=== PATIENT | female | born 1955 | race Caucasian/White ===

== ENCOUNTER 2017-06-05 00:52 | Outpatient (CLI) | payer MEDICARE, MEDICAID ==
[~2017-06-05 00:52] MED LIST: AMIT-189 PO; BUDE0.256 PO; CALC0.253 PO; CHOL378P; CITA10TA9 PO; COR3.125T PO; DIAZ5TAB PO; DICY10CA88 PO; FURO80TA87 PO; GABA600T2 PO; GABA800T2 PO; LEVO112T52 PO; LURA60TA2 PO; NITR0.4T51 SL; RANI150T8 PO; TIZA4CAP PO; VALS160T2 PO
== END 2017-06-05 23:59 | disposition home or self-care (01) ==
LOC: DIABETIC 00:52
PROVIDERS: ATTEND Specialist
DX: E11.65 Type 2 diabetes mellitus with hyperglycemia (principal); I10 Essential (primary) hypertension; J45.909 Unspecified asthma, uncomplicated
CPT/HCPCS: G0108

== ENCOUNTER 2017-08-22 18:11 | Inpatient (IN) | payer MEDICARE, MEDICAID ==
[~2017-08-22] VITALS: Ht 162.6 cm; Wt 79.5 kg
[2017-08-22 18:42] LABS: BASOPHILS % (AUTO) 0.7 % (0-1); EOSINOPHILS # (AUTO) 0.3 X10'3 (0-0.9); EOSINOPHILS % (AUTO) 4.8 % (0-6); HEMATOCRIT 34.5 % (35.0-45.0); HEMOGLOBIN 11.9 g/dl (12.0-16.0); LYMPHOCYTES # (AUTO) 1.1 X10'3 (1.1-4.8); LYMPHOCYTES % (AUTO) 20.2 % (21-51); MEAN CORPUSCULAR HEMOGLOBIN 32.2 PG (27.0-31.0); MEAN CORPUSCULAR HGB CONC 34.5 % (33.0-36.5); MEAN CORPUSCULAR VOLUME 93.5 FL (78-98); MEAN PLATELET VOLUME 7.1 FL (7.4-10.4); MONOCYTES # (AUTO) 0.6 X10'3 (0-0.9); NEUTROPHILS # (AUTO) 3.6 X10'3 (1.8-7.7); NEUTROPHILS % (AUTO) 64.3 % (42-75); PLATELET COUNT 183 X10'3 (140-440); RED BLOOD COUNT 3.69 X10'6 (4.20-5.60); RED CELL DISTRIBUTION WIDTH 13.6 % (11.5-14.5); WHITE BLOOD COUNT 5.7 X10'3 (4.5-11.0)
[2017-08-22 18:59] LABS: ALANINE AMINOTRANSFERASE 35 U/L (12-78); ALBUMIN 3.2 G/DL (3.4-5.0); ALBUMIN/GLOBULIN RATIO 1.2 (1.1-1.5); ALKALINE PHOSPHATASE 69 IU/L (46-116); ANION GAP 3 (8-16); ASPARTATE AMINO TRANSFERASE 33 U/L (10-37); BILIRUBIN,TOTAL 0.8 MG/DL (0.1-1.0); BLOOD UREA NITROGEN 16 MG/DL (7-18); BUN/CREATININE RATIO 17.6 (6.6-38.0); CALCIUM 10.6 MG/DL (8.5-10.1); CHLORIDE 85 MMOL/L (99-107); CREATININE 0.91 MG/DL (0.40-0.90); GLUCOSE 96 MG/DL (70-104); SODIUM 128 MMOL/L (135-145); TOTAL CARBON DIOXIDE 39.8 MMOL/L (24-32); TOTAL PROTEIN 5.8 G/DL (6.4-8.2); eGFR 62 ML/MIN
[2017-08-22 19:01] LABS: POTASSIUM 2.1 MMOL/L (3.5-5.1)
[2017-08-22] MEDS ORDERED: potassium Cl 20 mEq SR tablet PO ONE (19:15)
[2017-08-22] MEDS ORDERED: magnesium 2GM in 50ml NS 50 ML IV ONE (19:15)
[2017-08-22 19:26] LABS: MAGNESIUM 1.3 MG/DL (1.5-2.4)
[2017-08-22] MEDS: potassium 10mEq/100ml NS w/LIDOcaine (10mg/bag) IV SCH ×2 (19:57→22:42)
[2017-08-22] MEDS ORDERED: CYAN10007 IM (20:47)
[2017-08-22] MEDS ORDERED: FURO-149 PO (20:47)
[2017-08-22] MEDS ORDERED: AMLO5TAB4 PO (20:47)
[2017-08-22] MEDS ORDERED: POTA20TA19 PO (20:47)
[2017-08-22] MEDS ORDERED: LEVO50TA PO (20:47)
[2017-08-22] MEDS ORDERED: ATOR10TA PO (20:47)
[2017-08-22] MEDS ORDERED: OXYC-150 PO (20:47)
[2017-08-22] MEDS ORDERED: LINA290C PO (20:51)
[2017-08-22] MEDS ORDERED: ALBU8.5H8 IH (20:51)
[2017-08-22] MEDS ORDERED: CARV-50 PO (20:51)
[2017-08-22] MEDS ORDERED: PALI6TAB PO (20:51)
[2017-08-22] MEDS ORDERED: mag hydrox/Alum hydrox/simeth 30ml oral suspension PO PRN (21:05)
[2017-08-22] MEDS ORDERED: magnesium 2GM in 50ml NS 50 ML IV PRN (21:05)
[2017-08-22] MEDS ORDERED: magnesium 4gm in 100ml NS 100 ML IV PRN (21:05)
[2017-08-22] MEDS ORDERED: magnesium Cl slow-release 64mg tablet PO PRN (21:05)
[2017-08-22] MEDS ORDERED: insulin Lispro (HumaLOG) vial - multi-dose SQ SCH (21:05)
[2017-08-22] MEDS ORDERED: ondansetron/PF 4mg/2ml inj IV PRN (21:05)
[2017-08-22] MEDS ORDERED: acetaminophen 325mg tablet PO PRN (21:05)
[2017-08-22] MEDS ORDERED: potassium Cl 20 mEq SR tablet PO PRN (21:05)
[2017-08-22] MEDS ORDERED: magnesium hydroxide 30ml (MOM) UD suspension PO PRN (21:05)
[2017-08-22] MEDS ORDERED: glucagon, human recombinant 1mg kit SUBCUT PRN (21:05)
[2017-08-22] MEDS ORDERED: dextrose ORAL solution 15 GM/59 ML bottle PO PRN ×2 (21:05)
[2017-08-22] MEDS ORDERED: potassium Cl 40MEQ/NS 500ml 500 ML IV PRN ×2 (21:05)
[2017-08-22] MEDS ORDERED: MESSAGE TO PHARMACY PO ONE (21:05)
[2017-08-22] MEDS ORDERED: dextrose 50%-water 50ml dispensing syringe IV PRN ×2 (21:05)
[2017-08-22] MEDS ORDERED: LOTE5DRO3 (21:11)
[2017-08-22 21:25] LABS: HEMOGLOBIN A1C 6.7 % (4.5-6.2)
[2017-08-22] MEDS: normal saline 1000ml 1,000 ML IV SCH (21:26)
[2017-08-22 22:45] VITALS: BP 122/68
[2017-08-22 23:34] LABS: MAGNESIUM 1.8 MG/DL (1.5-2.4)
[2017-08-22 23:36] LABS: POTASSIUM 2.3 MMOL/L (3.5-5.1)
[2017-08-22] MEDS ORDERED: potassium Cl 40MEQ/NS 500ml 1,000 ML IV ONE (23:54)
[2017-08-22] MEDS ORDERED: nitroGLYCERIN 0.4mg SUBLingual tab SL PRN (23:55)
[2017-08-22] MEDS ORDERED: diazepam 5mg tablet PO PRN (23:55)
[2017-08-22] MEDS ORDERED: non-formulary drug (Albuterol Sulfate (Proair Hfa) 2 PUFFS) IH PRN (23:55)
[2017-08-23] MEDS ORDERED: albuterol 2.5 MG/3 ML nebule NEB PRN (00:05)
[2017-08-23] MEDS: oxyCODONE/APAP 10/325mg tablet PO PRN ×2 (00:49→10:56)
[2017-08-23 06:09] LABS: BASOPHILS % (AUTO) 0.6 % (0-1); EOSINOPHILS # (AUTO) 0.2 X10'3 (0-0.9); EOSINOPHILS % (AUTO) 4.3 % (0-6); HEMATOCRIT 31.8 % (35.0-45.0); HEMOGLOBIN 10.9 g/dl (12.0-16.0); LYMPHOCYTES # (AUTO) 1.1 X10'3 (1.1-4.8); LYMPHOCYTES % (AUTO) 21.7 % (21-51); MEAN CORPUSCULAR HGB CONC 34.4 % (33.0-36.5); MEAN CORPUSCULAR VOLUME 92.9 FL (78-98); MEAN PLATELET VOLUME 7.7 FL (7.4-10.4); MONOCYTES # (AUTO) 0.5 X10'3 (0-0.9); MONOCYTES % (AUTO) 9.6 % (2-12); NEUTROPHILS # (AUTO) 3.3 X10'3 (1.8-7.7); NEUTROPHILS % (AUTO) 63.8 % (42-75); PLATELET COUNT 159 X10'3 (140-440); RED BLOOD COUNT 3.42 X10'6 (4.20-5.60); RED CELL DISTRIBUTION WIDTH 13.3 % (11.5-14.5); WHITE BLOOD COUNT 5.2 X10'3 (4.5-11.0)
[2017-08-23 06:36] LABS: ALBUMIN 2.8 G/DL (3.4-5.0); ANION GAP 4 (8-16); BLOOD UREA NITROGEN 14 MG/DL (7-18); BUN/CREATININE RATIO 19.7 (6.6-38.0); CALCIUM 9.4 MG/DL (8.5-10.1); CHLORIDE 94 MMOL/L (99-107); CREATININE 0.71 MG/DL (0.40-0.90); GLUCOSE 121 MG/DL (70-104); MAGNESIUM 1.6 MG/DL (1.5-2.4); POTASSIUM 3.3 MMOL/L (3.5-5.1); SODIUM 132 MMOL/L (135-145); TOTAL CARBON DIOXIDE 33.6 MMOL/L (24-32); eGFR 83 ML/MIN
[2017-08-23] MEDS: CITALOpram 10mg tablet PO SCH (07:24)
[2017-08-23] MEDS: levoTHYROXINE 25mcg tablet PO SCH (07:24)
[2017-08-23] MEDS: atorvastatin 10mg tablet PO SCH (07:24)
[2017-08-23] MEDS: carVEDilol 12.5mg tablet PO SCH ×2 (07:24→21:16)
[2017-08-23] MEDS: gabapentin 300mg capsule PO SCH ×2 (07:25→17:01)
[2017-08-23] MEDS: amLODIPine 5mg tablet PO SCH (07:25)
[2017-08-23] MEDS: famotidine 20mg tablet PO SCH ×2 (07:25→21:16)
[2017-08-23] MEDS: K and/or MAG REPLACEMENT MC SCH (07:33)
[2017-08-23 07:40] VITALS: BP 142/75
[2017-08-23] MEDS: Linaclotide (Linzess) 290 MG PO SCH (08:00)
[2017-08-23] MEDS ORDERED: non-formulary drug (Ranitidine HCl 1 TAB) PO SCH (08:00)
[2017-08-23 12:00] VITALS: BP 145/61
[2017-08-23] MEDS: calcitriol 0.25mcg capsule PO SCH ×2 (12:22→21:16)
[2017-08-23] MEDS: risperiDONE 2mg tablet PO SCH (12:23)
[2017-08-23 13:46] VITALS: BP 142/79
[2017-08-23] MEDS: potassium Cl 20 mEq SR tablet PO PRN ×2 (17:02→22:19)
[2017-08-23 18:00] VITALS: BP 116/61
[2017-08-23] MEDS ORDERED: gabapentin 300mg capsule PO SCH (21:00)
[2017-08-23] MEDS ORDERED: non-formulary drug (Paliperidone (Invega) 1 TAB) PO SCH (21:00)
[2017-08-23] MEDS: insulin glargine (Lantus) pen - multi-dose SQ SCH (21:00)
[2017-08-23] MEDS ORDERED: amitryptiline 50mg tablet PO SCH (21:00)
[2017-08-23] MEDS: normal saline 1000ml 1,000 ML IV SCH (21:28)
[2017-08-24] VITALS: BP 138/70
[2017-08-24] MEDS: potassium Cl 20 mEq SR tablet PO PRN (02:51)
[2017-08-24 05:19] LABS: BASOPHILS % (AUTO) 0.5 % (0-1); EOSINOPHILS # (AUTO) 0.3 X10'3 (0-0.9); EOSINOPHILS % (AUTO) 5.6 % (0-6); HEMATOCRIT 34.3 % (35.0-45.0); HEMOGLOBIN 11.6 g/dl (12.0-16.0); LYMPHOCYTES # (AUTO) 0.9 X10'3 (1.1-4.8); LYMPHOCYTES % (AUTO) 16.7 % (21-51); MEAN CORPUSCULAR HEMOGLOBIN 32.1 PG (27.0-31.0); MEAN CORPUSCULAR HGB CONC 33.8 % (33.0-36.5); MEAN PLATELET VOLUME 7.3 FL (7.4-10.4); MONOCYTES # (AUTO) 0.5 X10'3 (0-0.9); MONOCYTES % (AUTO) 8.8 % (2-12); NEUTROPHILS # (AUTO) 3.8 X10'3 (1.8-7.7); NEUTROPHILS % (AUTO) 68.4 % (42-75); PLATELET COUNT 182 X10'3 (140-440); RED BLOOD COUNT 3.61 X10'6 (4.20-5.60); RED CELL DISTRIBUTION WIDTH 13.7 % (11.5-14.5); WHITE BLOOD COUNT 5.5 X10'3 (4.5-11.0)
[2017-08-24 05:47] LABS: ALBUMIN 3.1 G/DL (3.4-5.0); ANION GAP 6 (8-16); BLOOD UREA NITROGEN 13 MG/DL (7-18); BUN/CREATININE RATIO 18.3 (6.6-38.0); CALCIUM 9.6 MG/DL (8.5-10.1); CHLORIDE 103 MMOL/L (99-107); CREATININE 0.71 MG/DL (0.40-0.90); GLUCOSE 153 MG/DL (70-104); MAGNESIUM 1.7 MG/DL (1.5-2.4); POTASSIUM 3.6 MMOL/L (3.5-5.1); SODIUM 140 MMOL/L (135-145); TOTAL CARBON DIOXIDE 31.4 MMOL/L (24-32); eGFR 83 ML/MIN
[2017-08-24] MEDS: K and/or MAG REPLACEMENT MC SCH (06:53)
[2017-08-24] MEDS: normal saline 1000ml 1,000 ML IV SCH ×2 (06:58→20:42)
[2017-08-24] MEDS: CITALOpram 10mg tablet PO SCH (07:00)
[2017-08-24] MEDS: levoTHYROXINE 25mcg tablet PO SCH (07:00)
[2017-08-24] MEDS: carVEDilol 12.5mg tablet PO SCH ×2 (07:00→21:22)
[2017-08-24] MEDS: calcitriol 0.25mcg capsule PO SCH ×2 (07:00→21:26)
[2017-08-24] MEDS: risperiDONE 2mg tablet PO SCH (07:01)
[2017-08-24] MEDS: atorvastatin 10mg tablet PO SCH (07:01)
[2017-08-24] MEDS: gabapentin 300mg capsule PO SCH ×2 (07:01→21:22)
[2017-08-24] MEDS: amLODIPine 5mg tablet PO SCH (07:01)
[2017-08-24] MEDS: famotidine 20mg tablet PO SCH ×2 (07:01→21:22)
[2017-08-24 07:08] VITALS: BP 133/83
[2017-08-24] MEDS: Linaclotide (Linzess) 290 MG PO SCH (07:08)
[2017-08-24 12:20] VITALS: BP 116/57
[2017-08-24] MEDS: oxyCODONE/APAP 5-325mg tablet PO PRN (16:36)
[2017-08-24 18:00] VITALS: BP 149/96
[2017-08-24 18:03] LABS: CLARITY,URINE CLEAR (Clear); COLOR,URINE YELLOW (Yellow); GLUCOSE, URINE NEGATIVE (Neg); KETONES,URINE NEGATIVE (Neg); LEUKOCYTE ESTERASE ,URINE NEGATIVE (Neg); NITRITES, URINE NEGATIVE (Neg); OCCULT BLOOD,URINE NEGATIVE (Neg); PROTEIN,URINE NEGATIVE (Neg)
[2017-08-24 18:06] LABS: UA COLLECTION TYPE VOIDED
[2017-08-24 18:58] LABS: URINE AMPHETAMINE SCREEN NEGATIVE (Neg); URINE BARBITUATE SCREEN NEGATIVE (Neg); URINE BENZODIAZEPINES SCREEN POSITIVE (Neg); URINE CANNABINOID SCREEN NEGATIVE (Neg); URINE COCAINE SCREEN NEGATIVE (Neg); URINE METHADONE SCREEN NEGATIVE (Neg); URINE OPIATE SCREEN NEGATIVE (Neg); URINE PHENCYCLIDINE SCREEN NEGATIVE (Neg)
[2017-08-24] MEDS: insulin glargine (Lantus) pen - multi-dose SQ SCH (21:00)
[2017-08-24 21:13] VITALS: BP 140/80
[2017-08-25] VITALS: BP 154/74
[2017-08-25] MEDS: oxyCODONE/APAP 5-325mg tablet PO PRN ×2 (00:16→11:09)
[2017-08-25] MEDS: normal saline 1000ml 1,000 ML IV SCH ×2 (00:19→13:16)
[2017-08-25 05:56] LABS: BASOPHILS % (AUTO) 0.4 % (0-1); EOSINOPHILS # (AUTO) 0.4 X10'3 (0-0.9); EOSINOPHILS % (AUTO) 5.9 % (0-6); HEMATOCRIT 37.4 % (35.0-45.0); HEMOGLOBIN 12.6 g/dl (12.0-16.0); LYMPHOCYTES # (AUTO) 1.2 X10'3 (1.1-4.8); LYMPHOCYTES % (AUTO) 16.6 % (21-51); MEAN CORPUSCULAR HEMOGLOBIN 32.1 PG (27.0-31.0); MEAN CORPUSCULAR HGB CONC 33.6 % (33.0-36.5); MEAN CORPUSCULAR VOLUME 95.5 FL (78-98); MEAN PLATELET VOLUME 7.7 FL (7.4-10.4); MONOCYTES # (AUTO) 0.5 X10'3 (0-0.9); MONOCYTES % (AUTO) 7.3 % (2-12); NEUTROPHILS % (AUTO) 69.8 % (42-75); PLATELET COUNT 213 X10'3 (140-440); RED BLOOD COUNT 3.92 X10'6 (4.20-5.60); RED CELL DISTRIBUTION WIDTH 13.8 % (11.5-14.5); WHITE BLOOD COUNT 7.2 X10'3 (4.5-11.0)
[2017-08-25 06:38] LABS: ALBUMIN 3.5 G/DL (3.4-5.0); ANION GAP 6 (8-16); BLOOD UREA NITROGEN 10 MG/DL (7-18); BUN/CREATININE RATIO 13.9 (6.6-38.0); CALCIUM 9.7 MG/DL (8.5-10.1); CHLORIDE 102 MMOL/L (99-107); CREATININE 0.72 MG/DL (0.40-0.90); GLUCOSE 140 MG/DL (70-104); MAGNESIUM 1.6 MG/DL (1.5-2.4); POTASSIUM 3.5 MMOL/L (3.5-5.1); SODIUM 136 MMOL/L (135-145); eGFR 82 ML/MIN
[2017-08-25 07:00] VITALS: BP 166/82
[2017-08-25] MEDS: levoTHYROXINE 25mcg tablet PO SCH (07:16)
[2017-08-25] MEDS: carVEDilol 12.5mg tablet PO SCH (07:16)
[2017-08-25] MEDS: risperiDONE 2mg tablet PO SCH (07:17)
[2017-08-25] MEDS: CITALOpram 10mg tablet PO SCH (07:17)
[2017-08-25] MEDS: calcitriol 0.25mcg capsule PO SCH (07:17)
[2017-08-25] MEDS: gabapentin 300mg capsule PO SCH ×2 (07:17→12:57)
[2017-08-25] MEDS: amLODIPine 5mg tablet PO SCH (07:17)
[2017-08-25] MEDS: atorvastatin 10mg tablet PO SCH (07:17)
[2017-08-25] MEDS: famotidine 20mg tablet PO SCH (07:17)
[2017-08-25] MEDS: Linaclotide (Linzess) 290 MG PO SCH (07:18)
[2017-08-25] MEDS: K and/or MAG REPLACEMENT MC SCH (07:22)
[2017-08-25 11:00] VITALS: BP 167/90
[2017-08-25] MEDS ORDERED: GABA300C PO (14:26)
[2017-08-25] MEDS ORDERED: FURO-150 PO (14:32)
[2017-08-28 16:52] LABS: OCCULT BLOOD STOOL NEGATIVE (Neg)
== END 2017-08-25 15:50 | disposition home health service (06) | DRG 640 ==
LOC: ER 18:12 → ED HOLD 21:02 → EDBEDREQ 22:22 → SUR 3N 22:45
PROVIDERS: ADMIT Family Medicine; ATTEND Family Medicine
PROC: 02HV33Z Insertion of Infusion Device into Superior Vena Cava, Percutaneous Approach (ICD-10-PCS; principal; 2017-08-22)
DX: E87.6 Hypokalemia (principal); G93.40 Encephalopathy, unspecified; E86.0 Dehydration; E87.2 Acidosis; I50.22 Chronic systolic (congestive) heart failure; E83.52 Hypercalcemia; K50.90 Crohn's disease, unspecified, without complications; E83.42 Hypomagnesemia; E87.1 Hypo-osmolality and hyponatremia; D64.9 Anemia, unspecified; E11.9 Type 2 diabetes mellitus without complications; E03.9 Hypothyroidism, unspecified; E73.9 Lactose intolerance, unspecified; G89.29 Other chronic pain; M54.9 Dorsalgia, unspecified; E87.8 Other disorders of electrolyte and fluid balance, not elsewhere classified; F32.9 Major depressive disorder, single episode, unspecified; F41.9 Anxiety disorder, unspecified; I25.10 Atherosclerotic heart disease of native coronary artery without angina pectoris; I73.00 Raynaud's syndrome without gangrene; M23.91 Unspecified internal derangement of right knee; Z80.0 Family history of malignant neoplasm of digestive organs; Z80.8 Family history of malignant neoplasm of other organs or systems; Z82.49 Family history of ischemic heart disease and other diseases of the circulatory system; Z95.5 Presence of coronary angioplasty implant and graft; I25.2 Old myocardial infarction; Z98.84 Bariatric surgery status; Z88.5 Allergy status to narcotic agent; Z88.8 Allergy status to other drugs, medicaments and biological substances; Z91.041 Radiographic dye allergy status; Z79.899 Other long term (current) drug therapy; Z95.0 Presence of cardiac pacemaker
CPT/HCPCS: 36415; 70450; 80048; 80053; 80305; 81003; 82272; 82948; 83036; 83735; 84132; 84443; 85025; 87070; 93005; 94760; 97116; 97162; 97530; J1815; J3475; J3480; J7030

== ENCOUNTER 2017-09-03 04:42 | Outpatient (CLI) | payer MEDICARE, MEDICAID ==
[~2017-09-03 04:42] MED LIST changes: +ALBU8.5H8 IH; -AMIT-189 PO; +AMLO5TAB4 PO; +ATOR10TA PO; -BUDE0.256 PO; +CARV-50 PO; -CHOL378P; -COR3.125T PO; +CYAN10007 IM; -DIAZ5TAB PO; +FURO-150 PO; -FURO80TA87 PO; +GABA300C PO; -GABA600T2 PO; -GABA800T2 PO; -LEVO112T52 PO; +LEVO50TA PO; +LINA290C PO; +LOTE5DRO3; -LURA60TA2 PO; +PALI6TAB PO; +POTA20TA19 PO; -TIZA4CAP PO; -VALS160T2 PO
== END 2017-09-03 23:59 | disposition home or self-care (01) ==
LOC: DIABETIC 04:42
PROVIDERS: ATTEND Specialist
DX: E11.65 Type 2 diabetes mellitus with hyperglycemia (principal); I11.0 Hypertensive heart disease with heart failure; I50.9 Heart failure, unspecified; J45.909 Unspecified asthma, uncomplicated
CPT/HCPCS: G0108

== ENCOUNTER 2018-01-09 01:48 | Outpatient (CLI) | payer MEDICARE | END 2018-01-09 23:59 | disposition home or self-care (01) | LOC: DIABETIC 01:48 | PROVIDERS: ATTEND Specialist | DX: E11.65 Type 2 diabetes mellitus with hyperglycemia (principal); I11.0 Hypertensive heart disease with heart failure; I50.9 Heart failure, unspecified; J45.909 Unspecified asthma, uncomplicated | CPT/HCPCS: G0108 ==

== ENCOUNTER 2018-07-23 01:34 | Outpatient (CLI) | payer MEDICARE, MEDICAID | END 2018-07-23 23:59 | disposition home or self-care (01) | LOC: DIABETIC 01:34 | PROVIDERS: ATTEND Specialist | DX: E11.65 Type 2 diabetes mellitus with hyperglycemia (principal); I11.0 Hypertensive heart disease with heart failure; I50.9 Heart failure, unspecified; J45.909 Unspecified asthma, uncomplicated | CPT/HCPCS: G0108 ==

== ENCOUNTER 2018-09-03 14:50 | Outpatient (CLI) | payer MEDICARE, MEDICAID ==
[2018-09-03 15:48] LABS: BASOPHILS # (AUTO) 0.1 X10'3 (0-0.2); BASOPHILS % (AUTO) 1.5 % (0-1); EOSINOPHILS # (AUTO) 0.3 X10'3 (0-0.9); HEMATOCRIT 36.5 % (35.0-45.0); HEMOGLOBIN 12.1 g/dl (12.0-16.0); LYMPHOCYTES # (AUTO) 1.5 X10'3 (1.1-4.8); LYMPHOCYTES % (AUTO) 22.5 % (21-51); MEAN CORPUSCULAR HEMOGLOBIN 31.1 PG (27.0-31.0); MEAN CORPUSCULAR HGB CONC 33.1 g/dL (33.0-36.5); MEAN CORPUSCULAR VOLUME 94.1 FL (78-98); MEAN PLATELET VOLUME 8.2 FL (7.4-10.4); MONOCYTES # (AUTO) 0.6 X10'3 (0-0.9); NEUTROPHILS # (AUTO) 4.1 X10'3 (1.8-7.7); PLATELET COUNT 265 X10'3 (140-440); RED BLOOD COUNT 3.87 X10'6 (4.20-5.60); RED CELL DISTRIBUTION WIDTH 14.9 % (11.5-14.5); WHITE BLOOD COUNT 6.5 X10'3 (4.5-11.0)
[2018-09-03 15:57] LABS: INR 1.1 INR; PARTIAL THROMBOPLASTIN TIME 27 SECONDS (22-32)
[2018-09-03 15:58] LABS: ALANINE AMINOTRANSFERASE 30 U/L (12-78); ALBUMIN 3.8 G/DL (3.4-5.0); ALBUMIN/GLOBULIN RATIO 1.5 (1.1-1.5); ALKALINE PHOSPHATASE 69 IU/L (46-116); ANION GAP 3 (8-16); ASPARTATE AMINO TRANSFERASE 21 U/L (10-37); BILIRUBIN,TOTAL 0.4 MG/DL (0.1-1.0); BLOOD UREA NITROGEN 17 MG/DL (7-18); BUN/CREATININE RATIO 19.8 (6.6-38.0); CALCIUM 10.2 MG/DL (8.5-10.1); CHLORIDE 98 MMOL/L (99-107); CREATININE 0.86 MG/DL (0.40-0.90); GLUCOSE 136 MG/DL (70-104); POTASSIUM 3.6 MMOL/L (3.5-5.1); SODIUM 133 MMOL/L (135-145); TOTAL CARBON DIOXIDE 31.8 MMOL/L (24-32); TOTAL PROTEIN 6.4 G/DL (6.4-8.2); eGFR 66 ML/MIN
== END 2018-09-03 23:59 | disposition home or self-care (01) ==
LOC: LAB 14:50
PROVIDERS: ATTEND Otolaryngology
DX: D69.1 Qualitative platelet defects (principal)
CPT/HCPCS: 36415; 80053; 85025; 85576; 85610; 85730

== ENCOUNTER 2019-01-20 00:41 | Outpatient (CLI) | payer MEDICARE, MEDICAID | END 2019-01-20 23:59 | disposition home or self-care (01) | LOC: DIABETIC 00:41 | PROVIDERS: ATTEND Specialist | DX: E11.65 Type 2 diabetes mellitus with hyperglycemia (principal); I11.0 Hypertensive heart disease with heart failure; I50.9 Heart failure, unspecified; Z95.0 Presence of cardiac pacemaker; M19.90 Unspecified osteoarthritis, unspecified site; M81.0 Age-related osteoporosis without current pathological fracture; Z79.84 Long term (current) use of oral hypoglycemic drugs; Z79.899 Other long term (current) drug therapy | CPT/HCPCS: G0108 ==

== ENCOUNTER 2020-11-29 07:58 | Day surgery (SDC) | payer MEDICARE, MEDICAID ==
[2020-11-22 15:15] LABS: BASOPHILS # (AUTO) 0.1 X10'3 (0-0.2); BASOPHILS % (AUTO) 0.8 % (0-1); EOSINOPHILS # (AUTO) 0.1 X10'3 (0-0.9); EOSINOPHILS % (AUTO) 1.8 % (0-6); LYMPHOCYTES # (AUTO) 0.9 X10'3 (1.1-4.8); LYMPHOCYTES % (AUTO) 12.7 % (21-51); MEAN CORPUSCULAR HEMOGLOBIN 31.1 PG (27.0-31.0); MEAN CORPUSCULAR HGB CONC 33.2 g/dL (33.0-36.5); MEAN CORPUSCULAR VOLUME 93.4 FL (78-98); MEAN PLATELET VOLUME 7.8 FL (7.4-10.4); MONOCYTES # (AUTO) 0.7 X10'3 (0-0.9); MONOCYTES % (AUTO) 9.1 % (2-12); NEUTROPHILS # (AUTO) 5.6 X10'3 (1.8-7.7); NEUTROPHILS % (AUTO) 75.6 % (42-75); PRE OP PLATELET COUNT 263 X10'3 (140-440); RED BLOOD COUNT 3.32 X10'6 (4.20-5.60); RED CELL DISTRIBUTION WIDTH 16.8 % (11.5-14.5)
[2020-11-22 15:18] LABS: PRE OP HEMOGLOBIN 10.3 g/dL (12.0-16.0)
[2020-11-22 15:29] LABS: ALBUMIN 3.2 G/DL (3.4-5.0); ALBUMIN/GLOBULIN RATIO 1.2 (1.1-1.5); ALKALINE PHOSPHATASE 80 IU/L (46-116); BLOOD UREA NITROGEN 19 MG/DL (7-18); BUN/CREATININE RATIO 22.6 (6.6-38.0); CALCIUM 8.7 MG/DL (8.5-10.1); CHLORIDE 101 MMOL/L (99-107); CREATININE 0.84 MG/DL (0.40-0.90); PRE OP ALT 26 U/L (30-65); PRE OP ANION GAP 10 (8-16); PRE OP AST 20 U/L (10-37); PRE OP BILIRUB, TOTAL 0.2 MG/DL (0.0-1.0); PRE OP GLUCOSE 145 MG/DL (70-104); PRE OP POTASSIUM 3.8 MMOL/L (3.4-5.1); PRE OP SODIUM 135 MMOL/L (135-145); TOTAL CARBON DIOXIDE 23.8 MMOL/L (24-32); TOTAL PROTEIN 5.9 G/DL (6.4-8.2); eGFR 68 ML/MIN
[~2020-11-29] VITALS: Ht 162.6 cm; Wt 71.0 kg
[~2020-11-29 07:58] MED LIST changes: +ACET-2006 PO; -ALBU8.5H8 IH; +AMIT25TA9 PO; -AMLO5TAB4 PO; +ASCO-10 PO; +ASPI-611 PO; -ATOR10TA PO; +ATOR40TA72 PO; +BIOT5000 PO; +BUPIVAcaine/PF 2.5mg/ml (0.25%) 10ml vial ONE; -CALC0.253 PO; +CHOL500044; -CITA10TA9 PO; +CITA40TA17 PO; +CLIN-142 PO; +CYCL1DRO2; +DOCUMENT DATE & TIME OF BETA-BLOCKER PO ONE; +FAMO20TA8 PO; +FLUT15.815 NS; -FURO-150 PO; +GLUC-95 PO; +IBUP-1984 PO; -LINA290C PO; +LINA5TAB4 PO; -LOTE5DRO3; +METF-900 PO; +MUPI15CR12 TOP; -NITR0.4T51 SL; +OMEP-50 PO; -PALI6TAB PO; -RANI150T8 PO; +SACU1TAB PO; +VITA-268 PO; +ZINC50TA67 PO; +[UNRECOGNIZED DRUG - CODE] PO; +albuterol 2.5 MG/3 ML nebule NEB ONE; +cefazolin/dext.iso 2gm/100ml IV ONE; +famotidine 20mg tablet PO ONE; +ringers solution, lacted 1,000 ML IV SCH; +scopolamine 1mg/72 hr patch TD SCH
[2020-11-29 08:10] VITALS: BP 138/80
[2020-11-29] MEDS ORDERED: proCHLORperazine 10 MG/2 ml inj IV PRN (09:15)
[2020-11-29] MEDS ORDERED: ondansetron/PF 4mg/2ml inj IV PRN (09:15)
[2020-11-29] MEDS ORDERED: ringers solution, lacted 1,000 ML IV SCH (09:15)
[2020-11-29] MEDS ORDERED: morphine 2 MG/ML inj. syringe IV PRN (09:15)
[2020-11-29] MEDS ORDERED: morphine 4 MG/ML inj SYRINge IV PRN (09:15)
[2020-11-29] MEDS ORDERED: meperidine/PF 25mg/ml syringe IV PRN ×3 (09:15)
[2020-11-29] MEDS ORDERED: LIDOcaine 0.5% (5mg/ml) 50ml vial ONE (09:34)
[2020-11-29] MEDS ORDERED: midazolam 1 mg/ML 2ml injection ONE (10:19)
[2020-11-29] MEDS ORDERED: fentaNYL/PF 50MCG/1 ML 2ML syringe ONE (10:19)
[2020-11-29] MEDS ORDERED: propofol inj 20 ML IV ONE (10:36)
[2020-11-29 10:59] VITALS: BP 141/79
--- NOTE | 2020-11-29 10:59 | NUR ---
Received from OR via [facility] IN STABLE CONDITION , accompanied by Anesthesiologist and SPIRITUAL COUNSELOR report given by SPIRITUAL COUNSELOR AND Anesthesiolgist. Addendum: 11/29/20 at 1126 by Richelle Johnson RN Amended: Links added.
[2020-11-29 11:10] VITALS: BP 151/71
[2020-11-29 11:20] VITALS: BP 149/72
[2020-11-29 11:30] VITALS: BP 160/83
--- NOTE | 2020-11-29 11:39 | NUR ---
PATIENT DISCHARGED FROM PACU AFTER VERBAL AND WRITTEN DISCHARGE INSTRUCTIONS GIVEN. PATIENT GAVE VERBAL UNDERSTANDING OF INSTRUCTIONS GIVEN. PATIENT LEFT FACILITY VIA WHEELCHAIR WITH RN. Addendum: 11/29/20 at 1159 by Richelle Johnson RN Amended: Links added.
== END 2020-11-29 11:39 | disposition home or self-care (01) ==
LOC: PAS 07:58
PROVIDERS: ATTEND Orthopaedic Surgery Hand Surgery
DX: G56.02 Carpal tunnel syndrome, left upper limb (principal); M19.042 Primary osteoarthritis, left hand; I25.10 Atherosclerotic heart disease of native coronary artery without angina pectoris; F32.9 Major depressive disorder, single episode, unspecified; F41.9 Anxiety disorder, unspecified; E11.9 Type 2 diabetes mellitus without complications; E03.9 Hypothyroidism, unspecified; G47.30 Sleep apnea, unspecified; M19.011 Primary osteoarthritis, right shoulder; M17.0 Bilateral primary osteoarthritis of knee; Z86.73 Personal history of transient ischemic attack (TIA), and cerebral infarction without residual deficits; Z20.822 Contact with and (suspected) exposure to COVID-19; Z79.899 Other long term (current) drug therapy; Z88.5 Allergy status to narcotic agent; Z91.041 Radiographic dye allergy status; Z88.8 Allergy status to other drugs, medicaments and biological substances; Z95.5 Presence of coronary angioplasty implant and graft; Z90.49 Acquired absence of other specified parts of digestive tract; Z98.84 Bariatric surgery status; Z98.890 Other specified postprocedural states
CPT/HCPCS: 26531; 36415; 64721; 71046; 80053; 82948; 85025; 93005; J2001; J2250; J2704; J3010; J3490; J7120; L8630; U0003; U0005; Z7506; Z7512; A4215; A4618; A7000

== ENCOUNTER → 2021-02-08 | Outpatient (CLI) | payer MEDICARE, MEDICAID ==
[~2021-02-08] MED LIST changes: -BUPIVAcaine/PF 2.5mg/ml (0.25%) 10ml vial ONE; -DOCUMENT DATE & TIME OF BETA-BLOCKER PO ONE; -albuterol 2.5 MG/3 ML nebule NEB ONE; -cefazolin/dext.iso 2gm/100ml IV ONE; -famotidine 20mg tablet PO ONE; -ringers solution, lacted 1,000 ML IV SCH; -scopolamine 1mg/72 hr patch TD SCH
== END | disposition home or self-care (01) ==
LOC: VAS 11:51
PROVIDERS: ATTEND Orthopaedic Surgery
DX: S80.01XA Contusion of right knee, initial encounter (principal); M25.561 Pain in right knee; X58.XXXA Exposure to other specified factors, initial encounter; Y93.89 Activity, other specified; Y92.89 Other specified places as the place of occurrence of the external cause; Y99.8 Other external cause status
CPT/HCPCS: 93971

== ENCOUNTER 2021-02-21 07:49 | Day surgery (SDC) | payer MEDICARE, MEDICAID ==
[2021-02-17 14:36] LABS: BASOPHILS # (AUTO) 0.1 X10'3 (0-0.2); BASOPHILS % (AUTO) 1.2 % (0-1); EOSINOPHILS # (AUTO) 0.3 X10'3 (0-0.9); EOSINOPHILS % (AUTO) 3.1 % (0-6); LYMPHOCYTES # (AUTO) 0.7 X10'3 (1.1-4.8); LYMPHOCYTES % (AUTO) 7.9 % (21-51); MEAN CORPUSCULAR HEMOGLOBIN 29.5 PG (27.0-31.0); MEAN CORPUSCULAR HGB CONC 32.4 g/dL (33.0-36.5); MEAN CORPUSCULAR VOLUME 91.1 FL (78-98); MEAN PLATELET VOLUME 7.4 FL (7.4-10.4); MONOCYTES # (AUTO) 0.5 X10'3 (0-0.9); MONOCYTES % (AUTO) 6.3 % (2-12); NEUTROPHILS # (AUTO) 6.9 X10'3 (1.8-7.7); NEUTROPHILS % (AUTO) 81.5 % (42-75); PRE OP HEMATOCRIT 28.8 % (35.0-45.0); PRE OP PLATELET COUNT 436 X10'3 (140-440); RED BLOOD COUNT 3.16 X10'6 (4.20-5.60); RED CELL DISTRIBUTION WIDTH 15.3 % (11.5-14.5)
[2021-02-17 14:52] LABS: ALBUMIN 3.2 G/DL (3.4-5.0); ALBUMIN/GLOBULIN RATIO 1.1 (1.1-1.5); ALKALINE PHOSPHATASE 83 IU/L (46-116); BLOOD UREA NITROGEN 16 MG/DL (7-18); BUN/CREATININE RATIO 17.6 (6.6-38.0); CHLORIDE 106 MMOL/L (99-107); CREATININE 0.91 MG/DL (0.40-0.90); PRE OP ALT 39 U/L (30-65); PRE OP ANION GAP 9 (8-16); PRE OP AST 35 U/L (10-37); PRE OP BILIRUB, TOTAL 0.4 MG/DL (0.0-1.0); PRE OP HEMOGLOBIN 9.3 g/dL (12.0-16.0); PRE OP POTASSIUM 4.7 MMOL/L (3.4-5.1); PRE OP SODIUM 139 MMOL/L (135-145); TOTAL CARBON DIOXIDE 24.5 MMOL/L (24-32); eGFR 62 ML/MIN
[2021-02-17 14:54] LABS: PRE OP GLUCOSE 224 MG/DL (70-104)
[~2021-02-21] VITALS: Ht 162.6 cm; Wt 75.6 kg
[~2021-02-21 07:49] MED LIST changes: +ALBUTEROL; +BUDE3CAP8 PO; -CHOL500044; +CHOL500044 PO; -CITA40TA17 PO; -CYCL1DRO2; -FAMO20TA8 PO; +FURO40TA4 PO; -IBUP-1984 PO; +NAPR-996 PO; +POTA-207 PO; -POTA20TA19 PO; +albuterol 2.5 MG/3 ML nebule NEB ONE; +cefepime inj 2 GM in normal saline 100ml IV soln 100 ML IV ONE; +famotidine 20mg tablet PO ONE; +ringers solution, lacted 1,000 ML IV SCH
[2021-02-21] MEDS ORDERED: LIDOcaine 0.5% (5mg/ml) 50ml vial ONE (08:14)
[2021-02-21 08:15] VITALS: BP_SYST 133; BP_DIAS 76; BP_DIAS 78
[2021-02-21] MEDS ORDERED: midazolam 1 mg/ML 2ml injection ONE ×2 (09:16→09:50)
[2021-02-21] MEDS ORDERED: fentaNYL/PF 50MCG/1 ML 2ML syringe ONE (09:16)
[2021-02-21] MEDS ORDERED: BUPIVAcaine/PF 2.5mg/ml (0.25%) 10ml vial ONE ×2 (09:23→10:27)
[2021-02-21] MEDS ORDERED: cefazolin/dext.iso 2gm/50ml 50 ML IV ONE (10:00)
[2021-02-21] MEDS ORDERED: hydrALAZINE 20mg/ml inj. IV ONE (10:01)
[2021-02-21] MEDS ORDERED: ceFAZolin 1000mg inj ONE (10:01)
[2021-02-21] MEDS ORDERED: diphenhydrAMINE 50 mg/ml inj ONE (10:08)
[2021-02-21] MEDS ORDERED: acetaminophen 1,000mg/100ml IV 100 ML IV ONE (10:29)
[2021-02-21 10:34] VITALS: BP 135/77
--- NOTE | 2021-02-21 10:34 | NUR ---
Received from OR via [facility] IN STABLE CONDITION , accompanied by Anesthesiologist and CARE AID report given by CARE AID AND Anesthesiolgist. Addendum: 02/21/21 at 1104 by Richelle Johnson RN Amended: Links added.
[2021-02-21 10:50] VITALS: BP 152/87
[2021-02-21 11:00] VITALS: BP 152/82
[2021-02-21 11:10] VITALS: BP 159/85
[2021-02-21] MEDS ORDERED: morphine 4 MG/ML inj SYRINge IV PRN (11:10)
[2021-02-21] MEDS ORDERED: ringers solution, lacted 1,000 ML IV SCH (11:10)
[2021-02-21] MEDS ORDERED: morphine 2 MG/ML inj. syringe IV PRN (11:10)
[2021-02-21] MEDS ORDERED: proCHLORperazine 10 MG/2 ml inj IV PRN (11:10)
[2021-02-21] MEDS ORDERED: ondansetron/PF 4mg/2ml inj IV PRN (11:10)
[2021-02-21] MEDS ORDERED: meperidine/PF 25mg/ml syringe IV PRN ×3 (11:10)
--- NOTE | 2021-02-21 11:54 | NUR ---
PATIENT DISCHARGED FROM PACU IN STABLE CONDITION AFTER WRITTEN AND VERBAL DISCHARGE INSTRUCTIONS GIVEN. PATIENT GAVE A VERBAL UNDERSTANDING OF INSTRUCTIONS GIVEN. PATIENT LEFT FACILITY VIA WHEELCHAIR WITH RN. Addendum: 02/21/21 at 1218 by Richelle Johnson RN Amended: Links added.
== END 2021-02-21 11:54 | disposition home or self-care (01) ==
LOC: PAS 07:49
PROVIDERS: ATTEND Orthopaedic Surgery Hand Surgery
DX: M72.0 Palmar fascial fibromatosis [Dupuytren] (principal); G56.01 Carpal tunnel syndrome, right upper limb; M96.0 Pseudarthrosis after fusion or arthrodesis; M19.011 Primary osteoarthritis, right shoulder; M19.049 Primary osteoarthritis, unspecified hand; M17.0 Bilateral primary osteoarthritis of knee; F41.9 Anxiety disorder, unspecified; M19.90 Unspecified osteoarthritis, unspecified site; J45.909 Unspecified asthma, uncomplicated; G89.29 Other chronic pain; J44.9 Chronic obstructive pulmonary disease, unspecified; I25.10 Atherosclerotic heart disease of native coronary artery without angina pectoris; F32.9 Major depressive disorder, single episode, unspecified; E11.9 Type 2 diabetes mellitus without complications; E78.00 Pure hypercholesterolemia, unspecified; G47.30 Sleep apnea, unspecified; I50.9 Heart failure, unspecified; I25.2 Old myocardial infarction; E03.9 Hypothyroidism, unspecified; K21.9 Gastro-esophageal reflux disease without esophagitis; Z20.822 Contact with and (suspected) exposure to COVID-19; Z79.899 Other long term (current) drug therapy; Z79.82 Long term (current) use of aspirin; Z88.8 Allergy status to other drugs, medicaments and biological substances; Z88.5 Allergy status to narcotic agent; Z90.49 Acquired absence of other specified parts of digestive tract; Z98.84 Bariatric surgery status; Z98.890 Other specified postprocedural states; Z86.73 Personal history of transient ischemic attack (TIA), and cerebral infarction without residual deficits; Z95.0 Presence of cardiac pacemaker; Y83.8 Other surgical procedures as the cause of abnormal reaction of the patient, or of later complication, without mention of misadventure at the time of the procedure; Y82.8 Other medical devices associated with adverse incidents
CPT/HCPCS: 20680; 26121; 26850; 36415; 64721; 71046; 80053; 82948; 85025; 87635; C1713; C9803; J0131; J0360; J0690; J0692; J1200; J2001; J2250; J3010; J3490; J7120; Z7506; Z7512; A4215; A4618; A6449; A7000

== ENCOUNTER 2021-03-02 05:48 | Day surgery (SDC) | payer MEDICARE, MEDICAID ==
[2021-02-24 12:41] LABS: BASOPHILS # (AUTO) 0.1 X10'3 (0-0.2); BASOPHILS % (AUTO) 1.1 % (0-1); EOSINOPHILS # (AUTO) 0.2 X10'3 (0-0.9); EOSINOPHILS % (AUTO) 2.5 % (0-6); HEMATOCRIT 28.6 % (35.0-45.0); HEMOGLOBIN 9.4 g/dl (12.0-16.0); LYMPHOCYTES # (AUTO) 0.6 X10'3 (1.1-4.8); MEAN CORPUSCULAR HGB CONC 32.9 g/dL (33.0-36.5); MEAN CORPUSCULAR VOLUME 88.2 FL (78-98); MEAN PLATELET VOLUME 7.5 FL (7.4-10.4); MONOCYTES # (AUTO) 0.4 X10'3 (0-0.9); MONOCYTES % (AUTO) 4.8 % (2-12); NEUTROPHILS # (AUTO) 6.5 X10'3 (1.8-7.7); NEUTROPHILS % (AUTO) 83.6 % (42-75); PLATELET COUNT 360 X10'3 (140-440); RED BLOOD COUNT 3.24 X10'6 (4.20-5.60); RED CELL DISTRIBUTION WIDTH 15.1 % (11.5-14.5); WHITE BLOOD COUNT 7.8 X10'3 (4.5-11.0)
[2021-02-24 12:53] LABS: PARTIAL THROMBOPLASTIN TIME 25 SECONDS (22-32)
[2021-02-24 13:00] LABS: ALANINE AMINOTRANSFERASE 30 U/L (12-78); ALBUMIN 3.1 G/DL (3.4-5.0); ALKALINE PHOSPHATASE 83 IU/L (46-116); ANION GAP 9 (8-16); ASPARTATE AMINO TRANSFERASE 24 U/L (10-37); BILIRUBIN,TOTAL 0.4 MG/DL (0.1-1.0); BLOOD UREA NITROGEN 16 MG/DL (7-18); BUN/CREATININE RATIO 17.8 (6.6-38.0); CALCIUM 9.4 MG/DL (8.5-10.1); CHLORIDE 103 MMOL/L (99-107); GLUCOSE 164 MG/DL (70-104); SODIUM 137 MMOL/L (135-145); TOTAL CARBON DIOXIDE 25.3 MMOL/L (24-32); TOTAL PROTEIN 6.1 G/DL (6.4-8.2); eGFR 62 ML/MIN
[~2021-03-02] VITALS: Ht 162.6 cm; Wt 76.2 kg
[2021-03-02] VITALS (12 sets, daily range): BP systolic 132–176; BP diastolic 63–89
[~2021-03-02 05:48] MED LIST changes: -albuterol 2.5 MG/3 ML nebule NEB ONE; -cefepime inj 2 GM in normal saline 100ml IV soln 100 ML IV ONE; -famotidine 20mg tablet PO ONE; -ringers solution, lacted 1,000 ML IV SCH
[2021-03-02] MEDS ORDERED: LORazepam 0.5 MG tablet PO PRN (06:15)
[2021-03-02] MEDS ORDERED: insulin Lispro (HumaLOG) vial - multi-dose SQ SCH (06:15)
[2021-03-02] MEDS ORDERED: dextrose ORAL solution 15 GM/59 ML bottle PO PRN ×2 (06:15)
[2021-03-02] MEDS ORDERED: dextrose 50%-water 50ml dispensing syringe IV PRN ×2 (06:15)
[2021-03-02] MEDS ORDERED: methylPREDNISolone sod succ 125mg/2ml vial IV ONE (06:15)
[2021-03-02] MEDS ORDERED: glucagon, human recombinant 1mg kit SUBCUT PRN (06:15)
[2021-03-02] MEDS ORDERED: diphenhydrAMINE 25mg capsule PO PRN (06:15)
[2021-03-02] MEDS ORDERED: normal saline 1,000 ML IV SCH (06:15)
[2021-03-02] MEDS ORDERED: MESSAGE TO PHARMACY PO ONE (06:15)
[2021-03-02] MEDS ORDERED: PRED20TA PO (06:31)
[2021-03-02] MEDS ORDERED: LIDOcaine 1% (10mg/ml)w/preservative injection 20ml MDV ONE (07:57)
[2021-03-02] MEDS ORDERED: iohexol 350 MG/ML 50ML vial IV ONE ×3 (07:57→09:42)
[2021-03-02] MEDS ORDERED: fentaNYL/PF 50MCG/1 ML 2ML syringe ONE (07:57)
[2021-03-02] MEDS ORDERED: iohexol 350MG/ML 100ml bottle IV ONE (07:57)
[2021-03-02] MEDS ORDERED: midazolam 1 mg/ML 2ml injection ONE (07:57)
[2021-03-02] MEDS ORDERED: nitroGLYCERIN-Tridil 50MG/D5W 250 ML IV ONE (09:28)
[2021-03-02] MEDS ORDERED: HYDROcodone/acetaminophen 5mg/325mg tablet PO PRN (10:40)
[2021-03-02] MEDS ORDERED: proCHLORperazine 10 MG/2 ml inj IV PRN (10:40)
[2021-03-02] MEDS ORDERED: acetaminophen 325mg tablet PO PRN (10:40)
[2021-03-02] MEDS ORDERED: HYDROcodone/acetaminophen 10/325mg tab PO PRN (10:40)
[2021-03-02] MEDS ORDERED: OXAZEpam 15mg capsule PO PRN (10:40)
[2021-03-02] MEDS ORDERED: nitroGLYCERIN 0.4mg SUBLingual tab SL PRN (10:40)
[2021-03-02] MEDS ORDERED: ondansetron/PF 4mg/2ml inj IV PRN (10:40)
[2021-03-02] MEDS ORDERED: insulin glargine (Lantus) pen - multi-dose SQ SCH (21:00)
== END 2021-03-02 15:55 | disposition home or self-care (01) ==
LOC: SSTAY O 05:48
PROVIDERS: ATTEND Internal Medicine Cardiovascular Disease
DX: R94.39 Abnormal result of other cardiovascular function study (principal); R07.89 Other chest pain; I25.10 Atherosclerotic heart disease of native coronary artery without angina pectoris; E11.9 Type 2 diabetes mellitus without complications; J44.9 Chronic obstructive pulmonary disease, unspecified; I10 Essential (primary) hypertension; E03.9 Hypothyroidism, unspecified; E78.5 Hyperlipidemia, unspecified; Z88.8 Allergy status to other drugs, medicaments and biological substances; Z79.899 Other long term (current) drug therapy; Z98.890 Other specified postprocedural states; Z98.84 Bariatric surgery status; Z87.891 Personal history of nicotine dependence; Z79.84 Long term (current) use of oral hypoglycemic drugs; Z79.82 Long term (current) use of aspirin
CPT/HCPCS: 36415; 71046; 80053; 82948; 83880; 84484; 85025; 85610; 85730; 93005; 93458; 93567; 99152; 99153; C1760; C1769; J1644; J2001; J2250; J3010; J7030; Q9967; A4620; A6258; J1815; J3490

== ENCOUNTER 2022-02-01 09:01 | Emergency (ER) | payer MEDICARE, MEDICAID ==
[~2022-02-01] VITALS: Ht 162.6 cm; Wt 77.3 kg
[~2022-02-01 09:01] MED LIST changes: -ACET-2006 PO; +ALBU18HF2 IH; -ALBUTEROL; -AMIT25TA9 PO; +AMOX-580 PO; -ATOR40TA72 PO; +ATOR80TA PO; +BACL20TA PO; -BIOT5000 PO; +CALC0.2535 PO; -CARV-50 PO; +CARV6.253 PO; +CITA20TA27 PO; -CLIN-142 PO; +CYAN-51 PO; -CYAN10007 IM; -DICY10CA88 PO; +DICY20TA14 PO; +FLO110IN INH; -FLUT15.815 NS; -GLUC-95 PO; +HYDR-3973 PO; +LEVO25TA7 PO; -LEVO50TA PO; +LIDO700A47 TOP; +LIFI1DRO EACHEYE; -MUPI15CR12 TOP; -NAPR-996 PO; -OMEP-50 PO; +OMEP20CA16 PO; -POTA-207 PO; +POTA-82 PO; -ZINC50TA67 PO; +ZOLP5TAB8 PO; -[UNRECOGNIZED DRUG - CODE] PO
[2022-02-01 09:12] VITALS: BP 141/55
[2022-02-01 11:16] LABS: BASOPHILS # (AUTO) 0.1 X10'3 (0-0.2); EOSINOPHILS # (AUTO) 0.1 X10'3 (0-0.9); HEMATOCRIT 30.1 % (35.0-45.0); HEMOGLOBIN 10.1 g/dl (12.0-16.0); LYMPHOCYTES # (AUTO) 0.4 X10'3 (1.1-4.8); LYMPHOCYTES % (AUTO) 5.8 % (21-51); MEAN CORPUSCULAR HEMOGLOBIN 31.4 PG (27.0-31.0); MEAN CORPUSCULAR HGB CONC 33.4 g/dL (33.0-36.5); MEAN CORPUSCULAR VOLUME 94.2 FL (78-98); MONOCYTES # (AUTO) 0.6 X10'3 (0-0.9); MONOCYTES % (AUTO) 8.2 % (2-12); NEUTROPHILS # (AUTO) 6.3 X10'3 (1.8-7.7); PLATELET COUNT 316 X10'3 (140-440); WHITE BLOOD COUNT 7.6 X10'3 (4.5-11.0)
[2022-02-01 11:27] LABS: ALANINE AMINOTRANSFERASE 28 U/L (12-78); ALBUMIN 3.2 G/DL (3.4-5.0); ALBUMIN/GLOBULIN RATIO 1.1 (1.1-1.5); ALKALINE PHOSPHATASE 93 IU/L (46-116); ANION GAP 4 (8-16); ASPARTATE AMINO TRANSFERASE 27 U/L (10-37); BILIRUBIN,TOTAL 0.3 MG/DL (0.1-1.0); BLOOD UREA NITROGEN 11 MG/DL (7-18); BUN/CREATININE RATIO 17.2 (6.6-38.0); CALCIUM 9.6 MG/DL (8.5-10.1); CHLORIDE 98 MMOL/L (99-107); CREATININE 0.64 MG/DL (0.40-0.90); GLUCOSE 108 MG/DL (70-104); POTASSIUM 4.6 MMOL/L (3.5-5.1); SODIUM 132 MMOL/L (135-145); TOTAL CARBON DIOXIDE 30.3 MMOL/L (24-32); eGFR > 90 ML/MIN
[2022-02-01 11:35] LABS: MAGNESIUM 2.1 MG/DL (1.5-2.4)
[2022-02-01 11:38] LABS: CLARITY,URINE CLEAR (Clear); COLOR,URINE YELLOW (Yellow); GLUCOSE, URINE NEGATIVE (Neg); KETONES,URINE NEGATIVE (Neg); LEUKOCYTE ESTERASE ,URINE NEGATIVE (Neg); NITRITES, URINE NEGATIVE (Neg); OCCULT BLOOD,URINE NEGATIVE (Neg); PROTEIN,URINE NEGATIVE (Neg); UROBILINOGEN,URINE 0.2 E.U/dL (0.2-1.0)
[2022-02-01 11:49] LABS: UA COLLECTION TYPE CLN CATCH MIDSTREAM
[2022-02-01] MEDS ORDERED: AMOX-117 PO (12:23)
--- NOTE | 2022-02-01 12:25 | NUR ---
AYDIN HURTADO AT BEDSIDE SPEAKING WITH PT.
[2022-02-01] MEDS ORDERED: amox tr/potassium clavulanate 875/125mg TAB PO ONE (12:30)
[2022-02-02] MEDS ORDERED: CLIN-97 PO (14:30)
[2022-02-02] MEDS ORDERED: LEVO-65 PO (14:30)
== END 2022-02-01 12:38 | disposition home or self-care (01) ==
LOC: ER 09:02
DX: L03.113 Cellulitis of right upper limb (principal); M79.601 Pain in right arm; E11.42 Type 2 diabetes mellitus with diabetic polyneuropathy; I25.10 Atherosclerotic heart disease of native coronary artery without angina pectoris; I11.0 Hypertensive heart disease with heart failure; I50.9 Heart failure, unspecified; J45.909 Unspecified asthma, uncomplicated; M19.90 Unspecified osteoarthritis, unspecified site; G89.29 Other chronic pain; F41.9 Anxiety disorder, unspecified; F32.A Depression, unspecified; F12.90 Cannabis use, unspecified, uncomplicated; Z87.442 Personal history of urinary calculi; Z95.0 Presence of cardiac pacemaker; Z98.890 Other specified postprocedural states; Z72.89 Other problems related to lifestyle; Z60.2 Problems related to living alone; Z88.1 Allergy status to other antibiotic agents; Z88.8 Allergy status to other drugs, medicaments and biological substances; Z88.5 Allergy status to narcotic agent; Z79.2 Long term (current) use of antibiotics; Z79.899 Other long term (current) drug therapy
CPT/HCPCS: 36415; 71045; 73090; 73130; 80053; 81003; 83605; 83735; 83880; 84145; 84484; 85025; 87040; 93005; 99285

== ENCOUNTER 2022-02-02 11:52 | Emergency (ER) | payer MEDICARE, MEDICAID ==
[~2022-02-02] VITALS: Ht 162.6 cm; Wt 77.3 kg
[~2022-02-02 11:52] MED LIST changes: +AMOX-117 PO
[2022-02-02 12:43] VITALS: BP 135/70
[2022-02-02] MEDS ORDERED: CLIN-97 PO (14:30)
[2022-02-02] MEDS ORDERED: LEVO-65 PO (14:30)
== END 2022-02-02 15:09 | disposition home or self-care (01) ==
LOC: ER 11:53
DX: L03.113 Cellulitis of right upper limb (principal); T36.0X5A Adverse effect of penicillins, initial encounter; E11.42 Type 2 diabetes mellitus with diabetic polyneuropathy; I25.10 Atherosclerotic heart disease of native coronary artery without angina pectoris; I11.0 Hypertensive heart disease with heart failure; I50.9 Heart failure, unspecified; J45.909 Unspecified asthma, uncomplicated; M19.90 Unspecified osteoarthritis, unspecified site; G89.29 Other chronic pain; F41.9 Anxiety disorder, unspecified; F32.A Depression, unspecified; F12.90 Cannabis use, unspecified, uncomplicated; Z87.442 Personal history of urinary calculi; Z95.0 Presence of cardiac pacemaker; Z98.890 Other specified postprocedural states; Z72.89 Other problems related to lifestyle; Z60.2 Problems related to living alone; Z88.1 Allergy status to other antibiotic agents; Z88.8 Allergy status to other drugs, medicaments and biological substances; Z88.5 Allergy status to narcotic agent; Z79.2 Long term (current) use of antibiotics; Z79.82 Long term (current) use of aspirin; Y92.89 Other specified places as the place of occurrence of the external cause
CPT/HCPCS: 99284

== ENCOUNTER 2022-04-10 07:13 | Day surgery (SDC) | payer MEDICARE, MEDICAID ==
[2022-04-05 17:10] LABS: BASOPHILS # (AUTO) 0.1 X10'3 (0-0.2); EOSINOPHILS # (AUTO) 0.2 X10'3 (0-0.9); EOSINOPHILS % (AUTO) 2.6 % (0-6); LYMPHOCYTES % (AUTO) 14.2 % (21-51); MEAN CORPUSCULAR HEMOGLOBIN 30.9 PG (27.0-31.0); MEAN CORPUSCULAR HGB CONC 33.3 g/dL (33.0-36.5); MEAN CORPUSCULAR VOLUME 92.7 FL (78-98); MEAN PLATELET VOLUME 7.7 FL (7.4-10.4); MONOCYTES # (AUTO) 0.6 X10'3 (0-0.9); MONOCYTES % (AUTO) 9.1 % (2-12); NEUTROPHILS % (AUTO) 73.1 % (42-75); PRE OP HEMATOCRIT 31.5 % (35.0-45.0); PRE OP PLATELET COUNT 257 X10'3 (140-440); RED CELL DISTRIBUTION WIDTH 19.1 % (11.5-14.5)
[2022-04-05 17:14] LABS: HEMOGLOBIN A1C 7.6 % (4.5-6.2)
[2022-04-05 17:17] LABS: PRE OP HEMOGLOBIN 10.5 g/dL (12.0-16.0)
[2022-04-05 17:38] LABS: ALBUMIN 3.2 G/DL (3.4-5.0); ALBUMIN/GLOBULIN RATIO 1.2 (1.1-1.5); ALKALINE PHOSPHATASE 93 IU/L (46-116); BLOOD UREA NITROGEN 15 MG/DL (7-18); BUN/CREATININE RATIO 19.7 (6.6-38.0); CALCIUM 9.6 MG/DL (8.5-10.1); CHLORIDE 101 MMOL/L (99-107); CREATININE 0.76 MG/DL (0.40-0.90); PRE OP ALT 42 U/L (30-65); PRE OP ANION GAP 8 (8-16); PRE OP AST 37 U/L (10-37); PRE OP BILIRUB, TOTAL 0.3 MG/DL (0.0-1.0); PRE OP GLUCOSE 170 MG/DL (70-104); PRE OP POTASSIUM 3.8 MMOL/L (3.4-5.1); PRE OP SODIUM 136 MMOL/L (135-145); TOTAL CARBON DIOXIDE 26.8 MMOL/L (24-32); TOTAL PROTEIN 5.9 G/DL (6.4-8.2); eGFR 76 ML/MIN
[2022-04-05 18:52] LABS: ANISOCYTOSIS 2+; ELLIPTOCYTES FEW; PLATELET ESTIMATE NORMAL
[2022-04-05 18:53] LABS: POLYCHROMASIA FEW
[~2022-04-10] VITALS: Ht 160 cm; Wt 70.2 kg
[2022-04-10] VITALS (13 sets, daily range): BP systolic 111–136; BP diastolic 60–84
[~2022-04-10 07:13] MED LIST changes: -AMOX-117 PO; -AMOX-580 PO; -ASPI-611 PO; +ASPI-920 PO; -BACL20TA PO; +BIOT1TAB PO; -CARV6.253 PO; +CHOL400T57 PO; -CHOL500044 PO; +FLUT16SP2 BOTHNARES; +GLUC-95 PO; -LEVO25TA7 PO; +LEVO50TA8 PO; -LIFI1DRO EACHEYE; +NITR0.4T51 SL; +OLOP2.5D12 OP; -VITA-268 PO; +ZINC25CA PO; +ceFAZolin inj. 2,000 MG in dextrose 5%-water 100 ML IV ONE; +famotidine 20mg tablet PO ONE; +ringers solution, lacted 1,000 ML IV SCH; +tranexamic acid 650mg tablet PO ONE; +vancomycin/NS 1 GM in NS 250 ML IV ONE
[2022-04-10] MEDS ORDERED: ASPI-1264 PO (08:48)
[2022-04-10] MEDS ORDERED: ROPIVAcaine 0.5% (5mg/ml) 30ml vial ONE ×2 (09:52→10:45)
[2022-04-10] MEDS ORDERED: FENTANYL CITRATE/PF 50 MCG/1 ML VIAL ONE (10:44)
[2022-04-10] MEDS ORDERED: midazolam 1 mg/ML 2ml injection ONE (10:44)
[2022-04-10] MEDS ORDERED: propofol inj 20 ML IV ONE (10:46)
[2022-04-10] MEDS ORDERED: sevoflurane 250ml liquid IH ONE (11:18)
[2022-04-10] MEDS ORDERED: ROPIVAcaine 0.2% (10 MG/5 ML) BOLUS INJECTION INTERSCALE PRN (12:00)
[2022-04-10] MEDS ORDERED: ROPIVAcaine 0.2%/PF PUMP/bolus 545 ML INTERSCALE SCH (12:00)
[2022-04-10] MEDS ORDERED: meperidine/PF 25mg/ml syringe IV PRN ×2 (12:00)
[2022-04-10] MEDS ORDERED: ondansetron/PF 4mg/2ml inj IV PRN (12:00)
[2022-04-10] MEDS ORDERED: ringers solution, lacted 1,000 ML IV SCH (12:00)
[2022-04-10] MEDS ORDERED: HYDROmorphone/PF 0.2 MG/ML SYRINGE IV PRN ×2 (12:00)
[2022-04-10] MEDS ORDERED: ketorolac trometh. 30mg/ml inj. IV ONE (12:27)
[2022-04-10] MEDS ORDERED: ROPIVAcaine 0.5% (5mg/ml) 30ml vial IJ ONE (12:27)
[2022-04-10] MEDS ORDERED: ondansetron/PF 4mg/2ml inj ONE (12:46)
[2022-04-10] MEDS ORDERED: dexamethasone sod phosphate 4mg/ml inj. ONE (12:46)
[2022-04-10] MEDS ORDERED: acetaminophen 1,000mg/100ml IV 100 ML IV ONE (12:46)
--- NOTE | 2022-04-10 13:00 | NUR ---
Received from OR via , accompanied by Anesthesiologist and report given by Anesthesiolgist. PATIENT WAKING UP DENIES PAIN, V/S WNL, CSM INTACT, SCD BLE, 18G LUE, DRESSING TO RIGHT SHOULDER CDI W/ SLING.
[2022-04-10] MEDS ORDERED: HYDROcodone/acetaminophen 10/325mg tab PO PRN (13:05)
--- NOTE | 2022-04-10 14:40 | NUR ---
PATIENT A&OX4,DENIES PAIN, V/S WNL, CSM INTACT, SCD BLE D/C, 18G LUE D/C, DRESSING TO RIGHT SHOULDER CDI W/ SLING. I HAVE REVIEWED TSA PRECAUTIONS AND EXERSIZES PER MD ORDER WELL ON Q BALL MANAGEMENT AND REMOVAL AND PROVIDED PATIENT WITH HANDOUT INSTRUCTIONS WELL HAS DISCHARGE INSTRUCTIONS BY DR WRIGHT AND PATIENT HAS VERBALIZED UNDERSTANDING. PATIENT D/C HOME WITH SISTER WITH ALL PAPERWORK AND HANDOUTS AND BELONGINGS AND HER SISTER GAVE TRANSPORT.
== END 2022-04-10 14:40 | disposition home or self-care (01) ==
LOC: PAS IN 07:13 → UNDOADMIN 07:13 → PAS 07:13 → EDSTATUS 11:00 → UNDODISIN 14:40 → PAS 14:40
PROVIDERS: ATTEND Orthopaedic Surgery
DX: M75.121 Complete rotator cuff tear or rupture of right shoulder, not specified as traumatic (principal); M19.011 Primary osteoarthritis, right shoulder; M75.21 Bicipital tendinitis, right shoulder; I11.0 Hypertensive heart disease with heart failure; I50.9 Heart failure, unspecified; G89.18 Other acute postprocedural pain; E11.9 Type 2 diabetes mellitus without complications; F41.8 Other specified anxiety disorders; Z79.899 Other long term (current) drug therapy; Z98.890 Other specified postprocedural states; Z90.49 Acquired absence of other specified parts of digestive tract; Z90.710 Acquired absence of both cervix and uterus; Z98.84 Bariatric surgery status; I25.2 Old myocardial infarction; Z88.8 Allergy status to other drugs, medicaments and biological substances; Z91.02 Food additives allergy status
CPT/HCPCS: 23430; 23472; 36415; 64415; 76942; 80053; 82948; 83036; 84443; 85025; 87081; A6258; C1776; J0131; J1100; J1885; J2250; J2405; J2704; J2795; J3010; J3370; J3490; J7030; J7120; Z7506; Z7508; Z7512; 85008; A4618; A7000; J0690; J7060

== ENCOUNTER 2024-04-10 08:12 | Outpatient (CLI) | payer MEDICARE, MEDICAID ==
[~2024-04-10] VITALS: Ht 160 cm; Wt 63.5 kg
[~2024-04-10 08:12] MED LIST changes: +ACET-1025 PO; -ALBU18HF2 IH; -ASCO-10 PO; +AZEL6DRO5 EACHEYE; +BACL10TA2 PO; +CHOL10008 PO; -CHOL400T57 PO; +CYAN-104 PO; -CYAN-51 PO; +EMPA25TA PO; -FLO110IN INH; -FLUT16SP2 BOTHNARES; +FOLATE PO; -GLUC-95 PO; -HYDR-3973 PO; +LEVO50TA PO; -LEVO50TA8 PO; +LINA72CA PO; +LORA10TA7 PO; -METF-900 PO; -NITR0.4T51 SL; -OLOP2.5D12 OP; +POTA-208 PO; -POTA-82 PO; +PROBIOTIC PO; +TUMS PO; +UBID100C16 PO; -ceFAZolin inj. 2,000 MG in dextrose 5%-water 100 ML IV ONE; -famotidine 20mg tablet PO ONE; -ringers solution, lacted 1,000 ML IV SCH; -tranexamic acid 650mg tablet PO ONE; -vancomycin/NS 1 GM in NS 250 ML IV ONE
[2024-04-10 08:57] LABS: TOTAL HEMOGLOBIN 7.8 G/dl (12.0-16.0)
[2024-04-10] MEDS: albuterol 2.5 MG/3 ML nebule NEB ONE (09:24)
[2024-04-10 09:35] VITALS: PULSE 66; RESP 16; O2SAT 97
[2024-04-10 09:46] VITALS: PULSE 60; RESP 16
== END 2024-04-10 23:59 | disposition home or self-care (01) ==
LOC: RT 08:12
PROVIDERS: ATTEND Internal Medicine Pulmonary Disease
DX: R94.2 Abnormal results of pulmonary function studies (principal); J45.998 Other asthma
CPT/HCPCS: 85018; 94060; 94727; 94729; 94760; Z7610

== ENCOUNTER 2024-04-10 13:49 | Emergency (ER) | payer MEDICARE, MEDICAID ==
[~2024-04-10] VITALS: Ht 160 cm; Wt 66.8 kg
[2024-04-10 14:01] VITALS: TEMP 98.5
[2024-04-10 15:47] LABS: BASOPHILS # (AUTO) 0.1 X10'3 (0-0.2); BASOPHILS % (AUTO) 1.1 % (0-1); EOSINOPHILS # (AUTO) 0.2 X10'3 (0-0.9); EOSINOPHILS % (AUTO) 2.1 % (0-6); HEMATOCRIT 28.4 % (35.0-45.0); LYMPHOCYTES % (AUTO) 13.4 % (21-51); MEAN CORPUSCULAR HEMOGLOBIN 25.9 PG (27.0-31.0); MEAN CORPUSCULAR HGB CONC 31.8 g/dL (33.0-36.5); MEAN CORPUSCULAR VOLUME 81.6 FL (78-98); MEAN PLATELET VOLUME 7.9 FL (7.4-10.4); MONOCYTES # (AUTO) 0.6 X10'3 (0-0.9); MONOCYTES % (AUTO) 8.3 % (2-12); NEUTROPHILS # (AUTO) 5.6 X10'3 (1.8-7.7); NEUTROPHILS % (AUTO) 75.1 % (42-75); PLATELET COUNT 287 X10'3 (140-440); RED BLOOD COUNT 3.48 X10'6 (4.20-5.60); RED CELL DISTRIBUTION WIDTH 16.8 % (11.5-14.5); WHITE BLOOD COUNT 7.4 X10'3 (4.5-11.0)
[2024-04-10 16:02] LABS: ALANINE AMINOTRANSFERASE 68 U/L (12-78); ALBUMIN 3.4 G/DL (3.4-5.0); ALBUMIN/GLOBULIN RATIO 1.2 (1.1-1.5); ALKALINE PHOSPHATASE 107 IU/L (46-116); ANION GAP 2 (8-16); ASPARTATE AMINO TRANSFERASE 44 U/L (10-37); BILIRUBIN,TOTAL 0.3 MG/DL (0.1-1.0); BLOOD UREA NITROGEN 29 MG/DL (7-18); BUN/CREATININE RATIO 34.1 (10.0-20.0); CALCIUM 9.9 MG/DL (8.5-10.1); CHLORIDE 104 MMOL/L (99-107); CREATININE 0.85 MG/DL (0.40-0.90); GLUCOSE 188 MG/DL (70-104); POTASSIUM 3.9 MMOL/L (3.5-5.1); SODIUM 138 MMOL/L (135-145); TOTAL CARBON DIOXIDE 31.7 MMOL/L (24-32); TOTAL PROTEIN 6.2 G/DL (6.4-8.2); eCRCL 51 ML/MIN; eGFR 66 ML/MIN
[2024-04-10 16:29] LABS: BILIRUBIN,URINE NEGATIVE (Neg); CLARITY,URINE CLEAR (Clear); COLOR,URINE YELLOW (Yellow); GLUCOSE, URINE >=1000 mg/dl (Neg); KETONES,URINE NEGATIVE (Neg); LEUKOCYTE ESTERASE ,URINE NEGATIVE (Neg); NITRITES, URINE NEGATIVE (Neg); OCCULT BLOOD,URINE NEGATIVE (Neg); PROTEIN,URINE NEGATIVE (Neg); UROBILINOGEN,URINE 0.2 E.U/dL (0.2-1.0)
[2024-04-10 16:32] LABS: UA COLLECTION TYPE CLN CATCH MIDSTREAM
[2024-04-10 16:36] LABS: BACTERIA,URINE NONE SEEN /HPF (Neg); RBC,URINE 0-2 /HPF (0-2); WBC,URINE 0-4 /HPF (0-4)
[2024-04-10 16:37] LABS: SQUAMOUS EPITHELIAL CELL,UR NONE SEEN /LPF (FEW)
[2024-04-10 16:58] LABS: LIPASE 94 U/L (16-77)
[2024-04-10 18:01] VITALS: BP 132/78; PULSE 76; RESP 15; O2SAT 96
== END 2024-04-10 18:24 | disposition home or self-care (01) ==
LOC: ER 13:50
DX: R79.89 Other specified abnormal findings of blood chemistry (principal); D64.9 Anemia, unspecified; I25.10 Atherosclerotic heart disease of native coronary artery without angina pectoris; I11.0 Hypertensive heart disease with heart failure; I50.9 Heart failure, unspecified; J45.909 Unspecified asthma, uncomplicated; E11.42 Type 2 diabetes mellitus with diabetic polyneuropathy; F41.9 Anxiety disorder, unspecified; F32.A Depression, unspecified; M19.90 Unspecified osteoarthritis, unspecified site; G89.29 Other chronic pain; F12.90 Cannabis use, unspecified, uncomplicated; Z87.442 Personal history of urinary calculi; Z88.0 Allergy status to penicillin; Z88.1 Allergy status to other antibiotic agents; Z88.5 Allergy status to narcotic agent; Z88.8 Allergy status to other drugs, medicaments and biological substances; Z95.0 Presence of cardiac pacemaker; Z95.1 Presence of aortocoronary bypass graft; Z98.84 Bariatric surgery status; Z79.82 Long term (current) use of aspirin
CPT/HCPCS: 36415; 80053; 81001; 83690; 85025; 99284

== ENCOUNTER 2024-07-27 12:45 | Inpatient (IN) | payer MEDICARE, MEDICAID ==
[~2024-07-27] VITALS: Ht 160 cm; Wt 70.0 kg
[2024-07-27] VITALS (13 sets, daily range): BP systolic 118–160; BP diastolic 52–89; PULSE 69–81; RESP 10–18; TEMP 99–100.4; O2SAT 96–100
[2024-07-27] MEDS ORDERED: magnesium Cl slow-release 64mg tablet PO PRN (13:55)
[2024-07-27] MEDS ORDERED: morphine 2 MG/ML inj. syringe IV PRN ×3 (13:55→14:05)
[2024-07-27] MEDS ORDERED: potassium Cl 40MEQ/1/2NS 520ml 520 ML IV PRN (13:55)
[2024-07-27] MEDS ORDERED: mag hydrox/Alum hydrox/simeth 30ml oral suspension PO PRN (13:55)
[2024-07-27] MEDS ORDERED: magnesium sulf-water 4G/100mL 100 ML IV PRN (13:55)
[2024-07-27] MEDS ORDERED: magnesium hydroxide 30ml (MOM) UD suspension PO PRN (13:55)
[2024-07-27] MEDS ORDERED: potassium Cl 20 mEq SR tablet PO PRN ×2 (13:55)
[2024-07-27] MEDS ORDERED: magnesium sulf-water 2g/50mL 50 ML IV PRN (13:55)
[2024-07-27] MEDS: normal saline 1000ml 1,000 ML IV SCH (14:37)
[2024-07-27] MEDS: HYDROmorphone 1 mg/ml syringe IV ONE (14:52)
[2024-07-27] MEDS ORDERED: diatr meglu/diatrizoate 30ml oral sol.-(3 dose) bottle ONE (14:57)
[2024-07-27] MEDS ORDERED: DEXTROSE 15 GM of carb/4 tabs (each vial/BOTTLE has 4 tablets) PO PRN (15:40)
[2024-07-27] MEDS ORDERED: glucagon, human recombinant 1mg kit SUBCUT PRN (15:40)
[2024-07-27] MEDS ORDERED: dextrose 50%-water 50ml dispensing syringe IV PRN ×2 (15:40)
[2024-07-27] MEDS: INSULIN LISPRO 100 UNIT/ML INSULN.PEN MULTI-DOSE SQ SCH (17:00)
[2024-07-27] MEDS: HYDROmorphone inj. 0.5 MG/0.5 ML DISP.SYRIN IV PRN (17:31)
[2024-07-27] MEDS: levoFLOXACIN-Levaquin 500mg/D5 100 ML IV SCH (18:30)
[2024-07-27] MEDS ORDERED: hydrALAZINE 20mg/ml inj. IV PRN (18:50)
[2024-07-27] MEDS ORDERED: fentaNYL/PF 50MCG/1 ML 2ML syringe IV PRN (18:50)
[2024-07-27] MEDS ORDERED: HYDROmorphone/PF 0.2 MG/ML SYRINGE IV PRN (18:50)
[2024-07-27] MEDS ORDERED: enalaprilat 1.25mg/ml 2ml vial IV PRN (18:50)
[2024-07-27] MEDS: ringers solution, lacted 1,000 ML IV ONE (18:50)
[2024-07-27] MEDS: metroNIDAZOLE-Flagyl 500mg/NS 100 ML IV STA (18:59)
[2024-07-27 19:08] LABS: BASOPHILS % (AUTO) 0.1 % (0-1); EOSINOPHILS % (AUTO) 0 % (0-6); HEMATOCRIT 38.3 % (35.0-45.0); HEMOGLOBIN 12.2 g/dl (12.0-16.0); LYMPHOCYTES # (AUTO) 0.2 X10'3 (1.1-4.8); LYMPHOCYTES % (AUTO) 0.9 % (21-51); MEAN CORPUSCULAR HEMOGLOBIN 25.9 PG (27.0-31.0); MEAN CORPUSCULAR HGB CONC 31.8 g/dL (33.0-36.5); MEAN CORPUSCULAR VOLUME 81.5 FL (78-98); MONOCYTES # (AUTO) 1.1 X10'3 (0-0.9); MONOCYTES % (AUTO) 5.1 % (2-12); NEUTROPHILS # (AUTO) 21.1 X10'3 (1.8-7.7); NEUTROPHILS % (AUTO) 93.9 % (42-75); PLATELET COUNT 258 X10'3 (140-440); RED CELL DISTRIBUTION WIDTH 29.3 % (11.5-14.5); WHITE BLOOD COUNT 22.4 X10'3 (4.5-11.0)
[2024-07-27] MEDS: HYDROmorphone inj. 0.5 MG/0.5 ML DISP.SYRIN IV ONE (19:20)
[2024-07-27 19:21] LABS: APTT 28 SECONDS (22-32); INR 1.1 INR; PROTHROMBIN TIME 10.8 SECONDS (9.0-12.0)
[2024-07-27 19:24] LABS: ALANINE AMINOTRANSFERASE 97 U/L (12-78); ALBUMIN/GLOBULIN RATIO 1.3 (1.1-1.5); ALKALINE PHOSPHATASE 65 IU/L (46-116); ANION GAP 11 (8-16); ASPARTATE AMINO TRANSFERASE 34 U/L (10-37); BILIRUBIN,TOTAL 0.8 MG/DL (0.1-1.0); BLOOD UREA NITROGEN 20 MG/DL (7-18); BUN/CREATININE RATIO 29.4 (10.0-20.0); CALCIUM 9.3 MG/DL (8.5-10.1); CHLORIDE 105 MMOL/L (99-107); CREATININE 0.68 MG/DL (0.40-0.90); GLUCOSE 89 MG/DL (70-104); POTASSIUM 3.4 MMOL/L (3.5-5.1); SODIUM 137 MMOL/L (135-145); TOTAL CARBON DIOXIDE 21.1 MMOL/L (24-32); TOTAL PROTEIN 5.4 G/DL (6.4-8.2); eCRCL 64 ML/MIN; eGFR 86 ML/MIN
[2024-07-27] MEDS ORDERED: midazolam 1 mg/ML 2ml injection ONE (19:30)
[2024-07-27] MEDS ORDERED: fentaNYL/PF 50MCG/1 ML 2ML syringe ONE ×2 (19:30→21:19)
[2024-07-27] MEDS ORDERED: rocuronium 10mg/ml inj IV ONE (19:31)
[2024-07-27] MEDS ORDERED: propofol inj 20 ML IV ONE (19:31)
[2024-07-27] MEDS ORDERED: LIDOcaine 2% (20mg/ml) 5ml vial ONE (19:31)
[2024-07-27] MEDS ORDERED: ondansetron/PF 4mg/2ml inj ONE (19:31)
[2024-07-27] MEDS ORDERED: desflurane 240ml liquid inh. IH ONE (19:32)
[2024-07-27 19:35] LABS: ANISOCYTOSIS 2+; PLATELET ESTIMATE NORMAL
[2024-07-27] MEDS ORDERED: albumin (Human) 5% 250ml 250 ML IV ONE ×2 (19:55→20:07)
[2024-07-27] MEDS: K and/or MAG REPLACEMENT MC SCH (20:00)
[2024-07-27] MEDS ORDERED: acetaminophen 1,000mg/100ml IV 100 ML IV ONE (20:45)
[2024-07-27] MEDS ORDERED: BUPIVAcaine 0.5% inj/PF 30 ML ONE (21:13)
[2024-07-27] MEDS ORDERED: BUPIVACAINE liposomal/PF 13.3 MG/ML 10mL vial IM ONE (21:13)
[2024-07-27] MEDS ORDERED: BUPIVAcaine/PF 2.5mg/ml (0.25%) 10ml vial ONE (21:13)
[2024-07-27] MEDS ORDERED: sugammadex 200mg/2ml injection IV ONE (21:19)
[2024-07-27] MEDS ORDERED: naloxone 0.4 mg/ml inj IV PRN (21:45)
[2024-07-27] MEDS: fentaNYL/PF 50MCG/1 ML 2ML syringe IV PRN (22:03)
[2024-07-27] MEDS: ringers solution, lacted 1,000 ML IV SCH (22:04)
[2024-07-27] MEDS: HYDROmorphone/PF 0.2 MG/ML SYRINGE IV PRN (23:02)
[2024-07-27] MEDS: docusate sod 100mg capsule PO SCH (23:41)
[2024-07-27] MEDS: insulin glargine (Lantus) pen - multi-dose SQ SCH (23:42)
[2024-07-27] MEDS: enoxaparin 40mg/0.4ml syringe SQ SCH (23:42)
[2024-07-28] VITALS (30 sets, daily range): BP systolic 125–149; BP diastolic 50–68; PULSE 69–84; RESP 10–26; TEMP 97–98.4; O2SAT 89–97
[2024-07-28] MEDS: potassium CL 20mEq in D5-1/2NS 1,000 ML IV SCH (00:44)
[2024-07-28] MEDS: metroNIDAZOLE-Flagyl 500mg/NS 100 ML IV SCH (00:51)
[2024-07-28] MEDS: ondansetron/PF 4mg/2ml inj IV PRN ×3 (01:45→16:10)
[2024-07-28] MEDS: acetaminophen 325mg tablet PO PRN (03:07)
[2024-07-28 06:04] LABS: BASOPHILS % (AUTO) 0.2 % (0-1); EOSINOPHILS % (AUTO) 0 % (0-6); HEMATOCRIT 30.1 % (35.0-45.0); HEMOGLOBIN 9.5 g/dl (12.0-16.0); LYMPHOCYTES # (AUTO) 0.2 X10'3 (1.1-4.8); LYMPHOCYTES % (AUTO) 1.8 % (21-51); MEAN CORPUSCULAR HGB CONC 31.6 g/dL (33.0-36.5); MEAN CORPUSCULAR VOLUME 82.1 FL (78-98); MEAN PLATELET VOLUME 7.9 FL (7.4-10.4); MONOCYTES # (AUTO) 0.8 X10'3 (0-0.9); MONOCYTES % (AUTO) 6.2 % (2-12); NEUTROPHILS # (AUTO) 11.7 X10'3 (1.8-7.7); NEUTROPHILS % (AUTO) 91.8 % (42-75); PLATELET COUNT 201 X10'3 (140-440); RED BLOOD COUNT 3.67 X10'6 (4.20-5.60); RED CELL DISTRIBUTION WIDTH 29.3 % (11.5-14.5); WHITE BLOOD COUNT 12.8 X10'3 (4.5-11.0)
[2024-07-28 06:22] LABS: ALANINE AMINOTRANSFERASE 93 U/L (12-78); ALBUMIN 2.6 G/DL (3.4-5.0); ALBUMIN/GLOBULIN RATIO 1.3 (1.1-1.5); ALKALINE PHOSPHATASE 48 IU/L (46-116); ANION GAP 11 (8-16); ASPARTATE AMINO TRANSFERASE 53 U/L (10-37); BILIRUBIN,TOTAL 0.8 MG/DL (0.1-1.0); BLOOD UREA NITROGEN 18 MG/DL (7-18); BUN/CREATININE RATIO 26.1 (10.0-20.0); CALCIUM 8.8 MG/DL (8.5-10.1); CHLORIDE 108 MMOL/L (99-107); CREATININE 0.69 MG/DL (0.40-0.90); GLUCOSE 152 MG/DL (70-104); HEMOGLOBIN A1C 7.8 % (4.5-6.2); MAGNESIUM 2.1 MG/DL (1.5-2.4); POTASSIUM 3.8 MMOL/L (3.5-5.1); SODIUM 139 MMOL/L (135-145); TOTAL CARBON DIOXIDE 19.7 MMOL/L (24-32); TOTAL PROTEIN 4.6 G/DL (6.4-8.2); eCRCL 63 ML/MIN; eGFR 84 ML/MIN
[2024-07-28] MEDS ORDERED: POTA-207 PO (09:43)
[2024-07-28] MEDS ORDERED: NYST15CR TOP (09:43)
[2024-07-28] MEDS ORDERED: SACU1TAB PO (09:43)
[2024-07-28] MEDS ORDERED: GABA300C PO ×2 (09:43)
[2024-07-28] MEDS ORDERED: CITA10TA15 PO (09:43)
[2024-07-28] MEDS ORDERED: DICY20TA17 PO (09:43)
[2024-07-28] MEDS ORDERED: CYAN-50 PO (09:43)
[2024-07-28] MEDS ORDERED: BACL20TA PO (09:43)
[2024-07-28] MEDS ORDERED: LATA2.5D14 EACHEYE (09:43)
[2024-07-28] MEDS ORDERED: HYDR-3973 PO (09:43)
[2024-07-28] MEDS ORDERED: FURO-149 PO (09:43)
[2024-07-28] MEDS ORDERED: ZOLP5TAB8 PO (09:43)
[2024-07-28] MEDS ORDERED: ATOR-2 PO (09:43)
[2024-07-28] MEDS ORDERED: LANTUS SQ (11:11)
[2024-07-28] MEDS: HYDROmorphone inj. 0.5 MG/0.5 ML DISP.SYRIN IV ONE (13:23)
[2024-07-28] MEDS: HYDROmorphone 1 mg/ml syringe IV PRN (16:10)
[2024-07-28] MEDS ORDERED: baclofen 10mg tablet PO PRN (18:45)
[2024-07-28] MEDS: gabapentin 300mg capsule PO SCH (20:00)
[2024-07-28] MEDS: sacubitril/valsartan 24mg-26mg tablet PO SCH (20:00)
[2024-07-28] MEDS: AZELASTINE HCL 0.05% EACHEYE SCH (20:00)
[2024-07-28] MEDS: EYE EACHEYE SCH (20:00)
[2024-07-28] MEDS: NYSTATIN CREAM - 30GM TUBE TP SCH (20:00)
[2024-07-28] MEDS: potassium Cl 20 mEq SR tablet PO SCH (20:00)
[2024-07-28] MEDS: HYDROmorphone inj. 0.5 MG/0.5 ML DISP.SYRIN IV PRN (21:40)
[2024-07-29 02:00] VITALS: BP 149/77; PULSE 79; RESP 14; TEMP 97.1; O2SAT 98
[2024-07-29 06:00] VITALS: BP 132/60; PULSE 71; RESP 18; TEMP 97.4; O2SAT 96
[2024-07-29 06:59] LABS: BASOPHILS % (AUTO) 0.3 % (0-1); EOSINOPHILS # (AUTO) 0.1 X10'3 (0-0.9); EOSINOPHILS % (AUTO) 0.6 % (0-6); HEMATOCRIT 28.5 % (35.0-45.0); LYMPHOCYTES # (AUTO) 0.3 X10'3 (1.1-4.8); LYMPHOCYTES % (AUTO) 3.1 % (21-51); MEAN CORPUSCULAR HEMOGLOBIN 26.8 PG (27.0-31.0); MEAN CORPUSCULAR HGB CONC 31.6 g/dL (33.0-36.5); MEAN CORPUSCULAR VOLUME 84.7 FL (78-98); MEAN PLATELET VOLUME 7.9 FL (7.4-10.4); MONOCYTES # (AUTO) 0.7 X10'3 (0-0.9); MONOCYTES % (AUTO) 6.8 % (2-12); NEUTROPHILS # (AUTO) 8.7 X10'3 (1.8-7.7); NEUTROPHILS % (AUTO) 89.2 % (42-75); PLATELET COUNT 167 X10'3 (140-440); RED BLOOD COUNT 3.37 X10'6 (4.20-5.60); RED CELL DISTRIBUTION WIDTH 30.2 % (11.5-14.5); WHITE BLOOD COUNT 9.8 X10'3 (4.5-11.0)
[2024-07-29 07:33] LABS: ALANINE AMINOTRANSFERASE 72 U/L (12-78); ALBUMIN 2.4 G/DL (3.4-5.0); ALKALINE PHOSPHATASE 52 IU/L (46-116); ANION GAP 7 (8-16); ASPARTATE AMINO TRANSFERASE 33 U/L (10-37); BILIRUBIN,TOTAL 0.4 MG/DL (0.1-1.0); BLOOD UREA NITROGEN 13 MG/DL (7-18); BUN/CREATININE RATIO 20.6 (10.0-20.0); CALCIUM 9.2 MG/DL (8.5-10.1); CHLORIDE 115 MMOL/L (99-107); CREATININE 0.63 MG/DL (0.40-0.90); GLUCOSE 182 MG/DL (70-104); MAGNESIUM 2.2 MG/DL (1.5-2.4); POTASSIUM 4.6 MMOL/L (3.5-5.1); SODIUM 143 MMOL/L (135-145); TOTAL CARBON DIOXIDE 20.8 MMOL/L (24-32); TOTAL PROTEIN 4.9 G/DL (6.4-8.2); eCRCL 69 ML/MIN; eGFR > 90 ML/MIN
[2024-07-29] MEDS: levoTHYROXINE 25mcg tablet PO SCH (08:00)
[2024-07-29] MEDS: LINACLOTIDE 72 MCG PO SCH (08:00)
[2024-07-29] MEDS: loratadine 10mg tablet PO SCH (08:00)
[2024-07-29] MEDS: cyanocobalamin 500mcg tablet PO SCH (08:00)
[2024-07-29] MEDS: EMPAGLIFLOZIN 25 MG TABLET PO SCH (08:00)
[2024-07-29] MEDS: pantoprazole 40mg Tablet.DR PO SCH (08:00)
[2024-07-29] MEDS: calcitriol 0.25mcg capsule PO SCH (08:00)
[2024-07-29] MEDS: CITALOpram 10mg tablet PO SCH (08:00)
[2024-07-29] MEDS: atorvastatin 20mg tablet PO SCH (08:00)
[2024-07-29 11:00] VITALS: BP 128/52; PULSE 63; RESP 13; TEMP 97.7; O2SAT 99
[2024-07-29] MEDS: gabapentin 300mg capsule PO SCH (12:00)
[2024-07-29 15:00] VITALS: BP 135/68; PULSE 69; RESP 20; TEMP 97.7; O2SAT 92
[2024-07-29 20:00] VITALS: RESP 17
[2024-07-29 22:00] VITALS: BP 144/63; PULSE 73; RESP 15; TEMP 97; O2SAT 98
[2024-07-30] VITALS (8 sets, daily range): BP systolic 121–136; BP diastolic 54–74; PULSE 60–63; RESP 14–19; TEMP 97.1–98.6; O2SAT 97–100
[2024-07-30 08:05] LABS: ALBUMIN 2.2 G/DL (3.4-5.0); ANION GAP 6 (8-16); BLOOD UREA NITROGEN 11 MG/DL (7-18); CALCIUM 9.2 MG/DL (8.5-10.1); CHLORIDE 117 MMOL/L (99-107); CREATININE 0.44 MG/DL (0.40-0.90); GLUCOSE 186 MG/DL (70-104); POTASSIUM 4.7 MMOL/L (3.5-5.1); SODIUM 147 MMOL/L (135-145); TOTAL CARBON DIOXIDE 23.6 MMOL/L (24-32); eCRCL 98 ML/MIN; eGFR > 90 ML/MIN
[2024-07-30] MEDS: INSULIN LISPRO 100 UNIT/ML INSULN.PEN MULTI-DOSE SQ SCH ×2 (12:35→18:00)
[2024-07-30] MEDS ORDERED: DEXTROSE 15 GM of carb/4 tabs (each vial/BOTTLE has 4 tablets) PO PRN (13:05)
[2024-07-30] MEDS: magnesium hydroxide 30ml (MOM) UD suspension PO SCH (16:40)
[2024-07-30] MEDS ORDERED: insulin glargine (Lantus) pen - multi-dose SQ SCH (21:00)
[2024-07-30] MEDS: insulin glargine (Lantus) pen - multi-dose SQ SCH (21:10)
[2024-07-31] VITALS (7 sets, daily range): BP systolic 114–133; BP diastolic 56–70; PULSE 60–83; RESP 14–21; TEMP 96.8–97.9; O2SAT 96–100
[2024-07-31 07:57] LABS: ALBUMIN 2.3 G/DL (3.4-5.0); ANION GAP 3 (8-16); BLOOD UREA NITROGEN 8 MG/DL (7-18); BUN/CREATININE RATIO 16.3 (10.0-20.0); CALCIUM 9.1 MG/DL (8.5-10.1); CHLORIDE 114 MMOL/L (99-107); CREATININE 0.49 MG/DL (0.40-0.90); GLUCOSE 114 MG/DL (70-104); POTASSIUM 4.3 MMOL/L (3.5-5.1); SODIUM 143 MMOL/L (135-145); TOTAL CARBON DIOXIDE 26.3 MMOL/L (24-32); eCRCL 88 ML/MIN; eGFR > 90 ML/MIN
[2024-07-31] MEDS: LIDOcaine 5% patch TP SCH (21:37)
[2024-07-31] MEDS: traMADol 50MG tablet PO PRN (22:36)
[2024-08-01 06:00] VITALS: BP 108/64; PULSE 72; RESP 20; TEMP 97.4; O2SAT 98
[2024-08-01 07:03] LABS: ANION GAP 5 (8-16); BLOOD UREA NITROGEN 5 MG/DL (7-18); BUN/CREATININE RATIO 11.9 (10.0-20.0); CALCIUM 8.4 MG/DL (8.5-10.1); CHLORIDE 111 MMOL/L (99-107); CREATININE 0.42 MG/DL (0.40-0.90); GLUCOSE 124 MG/DL (70-104); POTASSIUM 4.6 MMOL/L (3.5-5.1); SODIUM 139 MMOL/L (135-145); TOTAL CARBON DIOXIDE 23.3 MMOL/L (24-32); eCRCL 103 ML/MIN; eGFR > 90 ML/MIN
[2024-08-01 08:00] VITALS: RESP 20; O2SAT 98
[2024-08-01 09:05] LABS: BASOPHILS # (AUTO) 0.1 X10'3 (0-0.2); BASOPHILS % (AUTO) 1.2 % (0-1); EOSINOPHILS # (AUTO) 0.3 X10'3 (0-0.9); HEMATOCRIT 29.7 % (35.0-45.0); HEMOGLOBIN 9.6 g/dl (12.0-16.0); LYMPHOCYTES # (AUTO) 0.8 X10'3 (1.1-4.8); LYMPHOCYTES % (AUTO) 10.9 % (21-51); MEAN CORPUSCULAR HEMOGLOBIN 27.1 PG (27.0-31.0); MEAN CORPUSCULAR HGB CONC 32.2 g/dL (33.0-36.5); MEAN CORPUSCULAR VOLUME 84.1 FL (78-98); MEAN PLATELET VOLUME 8.3 FL (7.4-10.4); MONOCYTES # (AUTO) 0.5 X10'3 (0-0.9); MONOCYTES % (AUTO) 7.6 % (2-12); NEUTROPHILS # (AUTO) 5.3 X10'3 (1.8-7.7); NEUTROPHILS % (AUTO) 76.3 % (42-75); PLATELET COUNT 185 X10'3 (140-440); RED BLOOD COUNT 3.54 X10'6 (4.20-5.60)
[2024-08-01 09:37] LABS: ANISOCYTOSIS 3+; PLATELET ESTIMATE NORMAL
[2024-08-01 09:38] LABS: BURR CELLS 1+; ELLIPTOCYTES FEW; TEAR DROP CELLS FEW
[2024-08-01 11:00] VITALS: BP 116/68; PULSE 68; RESP 18; TEMP 97.7; O2SAT 97
[2024-08-01 18:00] VITALS: BP 126/63; PULSE 69; RESP 12; TEMP 97.6; O2SAT 99
[2024-08-01] MEDS: cyanocobalamin 500mcg tablet PO SCH (18:45)
[2024-08-01] MEDS: lactose-reduced food (Ensure Enlive) - 237ml bottle PO SCH (18:45)
[2024-08-01] MEDS: calcium carbonate 500mg tablet PO SCH (18:45)
[2024-08-01 22:00] VITALS: BP 138/74; PULSE 77; RESP 18; TEMP 97.6; O2SAT 100
[2024-08-01] MEDS: traMADol 50MG tablet PO ONE (22:26)
[2024-08-02] VITALS (9 sets, daily range): BP systolic 98–123; BP diastolic 49–69; PULSE 60–76; RESP 16–22; TEMP 97.5–98.6; O2SAT 98–100
[2024-08-02] MEDS: magnesium hydroxide 30ml (MOM) UD suspension PO SCH (08:00)
[2024-08-02] MEDS: ferrous sulfate 325mg tablet PO SCH (09:20)
[2024-08-02] MEDS: MULTIVIT-MIN/FERROUS GLUCONATE 9 MG/15 ML LIQUID PO SCH (09:20)
[2024-08-02] MEDS: cholecalciferol (vitamin D3) 1,000 unit (25mcg) tablet PO SCH (12:59)
[2024-08-02] MEDS: calcium carbonate 500mg tablet PO SCH (12:59)
[2024-08-02] MEDS: traMADol 50MG tablet PO PRN (21:06)
[2024-08-02] MEDS ORDERED: LIDOcaine 5% patch TP SCH (21:30)
[2024-08-02] MEDS: LIDOcaine 5% patch TP SCH (21:30)
[2024-08-03] VITALS (10 sets, daily range): BP systolic 106–128; BP diastolic 49–72; PULSE 67–79; RESP 12–19; TEMP 97.4–98; O2SAT 98–100
[2024-08-03] MEDS: DEXTROSE 15 GM of carb/4 tabs (each vial/BOTTLE has 4 tablets) PO PRN (07:43)
[2024-08-03 10:56] LABS: BASOPHILS # (AUTO) 0.1 X10'3 (0-0.2); BASOPHILS % (AUTO) 0.9 % (0-1); EOSINOPHILS # (AUTO) 0.2 X10'3 (0-0.9); EOSINOPHILS % (AUTO) 2.6 % (0-6); LYMPHOCYTES # (AUTO) 0.8 X10'3 (1.1-4.8); LYMPHOCYTES % (AUTO) 9.9 % (21-51); MEAN CORPUSCULAR HEMOGLOBIN 27.3 PG (27.0-31.0); MEAN CORPUSCULAR HGB CONC 33.3 g/dL (33.0-36.5); MEAN CORPUSCULAR VOLUME 82.1 FL (78-98); MONOCYTES # (AUTO) 0.7 X10'3 (0-0.9); MONOCYTES % (AUTO) 8.5 % (2-12); NEUTROPHILS # (AUTO) 6.5 X10'3 (1.8-7.7); NEUTROPHILS % (AUTO) 78.1 % (42-75); PLATELET COUNT 298 X10'3 (140-440); RED BLOOD COUNT 4.02 X10'6 (4.20-5.60); RED CELL DISTRIBUTION WIDTH 29.9 % (11.5-14.5); WHITE BLOOD COUNT 8.3 X10'3 (4.5-11.0)
[2024-08-03] MEDS ORDERED: oxyCODONE/APAP 5-325mg tablet PO PRN (11:00)
[2024-08-03 11:01] LABS: ALBUMIN 2.6 G/DL (3.4-5.0); ANION GAP 5 (8-16); BLOOD UREA NITROGEN 4 MG/DL (7-18); BUN/CREATININE RATIO 7.5 (10.0-20.0); CALCIUM 9.1 MG/DL (8.5-10.1); CHLORIDE 109 MMOL/L (99-107); CREATININE 0.53 MG/DL (0.40-0.90); GLUCOSE 132 MG/DL (70-104); POTASSIUM 3.5 MMOL/L (3.5-5.1); SODIUM 139 MMOL/L (135-145); TOTAL CARBON DIOXIDE 25.4 MMOL/L (24-32); eCRCL 82 ML/MIN; eGFR > 90 ML/MIN
[2024-08-03] MEDS: LIDOcaine 5% patch TP SCH (12:33)
[2024-08-03] MEDS: oxyCODONE/APAP 10/325mg tablet PO PRN (12:37)
[2024-08-03] MEDS ORDERED: FER325T PO (19:06)
[2024-08-04 02:00] VITALS: BP 116/67; PULSE 77; RESP 16; TEMP 97.6; O2SAT 99
[2024-08-04 06:00] VITALS: BP 93/45; PULSE 61; RESP 16; TEMP 97.3; O2SAT 93
[2024-08-04 11:00] VITALS: BP 90/52; PULSE 74; RESP 19; TEMP 96.7; O2SAT 99
[2024-08-04] MEDS ORDERED: METR-159 PO (11:15)
[2024-08-04] MEDS ORDERED: CIPR250T4 PO (11:15)
[2024-08-04] MEDS ORDERED: insulin glargine (Lantus) pen - multi-dose SQ SCH (21:00)
== END 2024-08-04 15:55 | disposition home or self-care (01) | DRG 853 ==
LOC: ER 12:46 → ED HOLD 13:58 → SUR 3N 15:54 → CICU 2S 22:22 → PCU 3S 07-28 17:30
PROVIDERS: ADMIT Internal Medicine; ATTEND Internal Medicine
PROC: 0DN80ZZ Release Small Intestine, Open Approach (ICD-10-PCS; 2024-07-27)
PROC: 0DBF0ZZ Excision of Right Large Intestine, Open Approach (ICD-10-PCS; principal; 2024-07-27 19:32)
DX: A41.9 Sepsis, unspecified organism (principal); K56.2 Volvulus; K55.9 Vascular disorder of intestine, unspecified; I50.32 Chronic diastolic (congestive) heart failure; M81.0 Age-related osteoporosis without current pathological fracture; I25.10 Atherosclerotic heart disease of native coronary artery without angina pectoris; E11.42 Type 2 diabetes mellitus with diabetic polyneuropathy; G89.29 Other chronic pain; I11.0 Hypertensive heart disease with heart failure; J45.909 Unspecified asthma, uncomplicated; F41.9 Anxiety disorder, unspecified; F32.A Depression, unspecified; E21.3 Hyperparathyroidism, unspecified; E03.9 Hypothyroidism, unspecified; K66.0 Peritoneal adhesions (postprocedural) (postinfection); Z87.442 Personal history of urinary calculi; Z95.0 Presence of cardiac pacemaker; Z95.1 Presence of aortocoronary bypass graft; Z98.84 Bariatric surgery status; Z90.49 Acquired absence of other specified parts of digestive tract; Z88.8 Allergy status to other drugs, medicaments and biological substances; Z88.5 Allergy status to narcotic agent
CPT/HCPCS: 36415; 71045; 74176; 80048; 80053; 82948; 83036; 83605; 83735; 84145; 85008; 85025; 85610; 85651; 85730; 86885; 86900; 86901; 87070; 87075; 87081; 88307; 93005; 93306; 97116; 97161; 97530; 99285; A4615; A4618; A6212; A6253; A6258; A6402; A6449; A7000; G0378; J0131; J0666; J1171; J1650; J1815; J1956; J2003; J2250; J2371; J2405; J2704; J3010; J3480; J3490; J7030; J7040; J7120; P9045; Q9963

== ENCOUNTER 2024-10-10 07:30 | Outpatient (CLI) | payer MEDICARE, MEDICAID ==
[~2024-10-10 07:30] MED LIST changes: -ACET-1025 PO; -ASPI-920 PO; +ATOR-2 PO; -ATOR80TA PO; -BACL10TA2 PO; -BIOT1TAB PO; -BUDE3CAP8 PO; -CHOL10008 PO; +CITA10TA15 PO; -CITA20TA27 PO; -CYAN-104 PO; +CYAN-50 PO; -DICY20TA14 PO; +FER325T PO; -FOLATE PO; +FURO-149 PO; -FURO40TA4 PO; +HYDR-3973 PO; +LANTUS SQ; +LATA2.5D14 EACHEYE; -LIDO700A47 TOP; -LORA10TA7 PO; +NYST15CR TOP; +POTA-207 PO; -POTA-208 PO; -PROBIOTIC PO; -TUMS PO; -UBID100C16 PO; -ZINC25CA PO
[2024-10-10 08:08] LABS: ALBUMIN 3.6 G/DL (3.4-5.0); ANION GAP 3 (8-16); BLOOD UREA NITROGEN 20 MG/DL (7-18); BUN/CREATININE RATIO 28.6 (10.0-20.0); CALCIUM 9.6 MG/DL (8.5-10.1); CHLORIDE 103 MMOL/L (99-107); GLUCOSE 86 MG/DL (70-104); POTASSIUM 3.7 MMOL/L (3.5-5.1); SODIUM 139 MMOL/L (135-145); TOTAL CARBON DIOXIDE 33.4 MMOL/L (24-32); eGFR 83 ML/MIN
[2024-10-10] MEDS ORDERED: iohexol 300mg/ml 100ml inj. ONE (08:41)
--- NOTE | 2024-10-10 12:01 | RADIOLOGY REPORT ---
Exam: CT CT ABDOMEN PELVIS W/ IV ORAL CONTRAST History: UNSPECIFIED ABDOMINAL PAIN COMPARISON: CT CT ABDOMEN PELVIS W/ RECTAL CON CONTRAST on DOS: 07/27/24, CT ABDOMEN+PELVIS WO IV CON o n DOS: 07/27/24, CT CT ABDOMEN PELVIS on DOS: 07/24/23 Technique: Multidetector spiral CT of the abdomen and pelvis was performed from lung bases to pubic s ymphysis. Intravenous contrast was administered during this examination. Portal venous imaging was o btained. Axial, coronal and sagittal multiplanar reformats were performed by the technologist on a [employer] workstation. Radiation Dose : 1. Abdomen/Pelvis: CTDIvol 21mGy, DLP 986 mGy*cm. Findings: Lung Bases: Cardiomegaly. Coronary artery calcifications. Vascular calcifications of the aorta. Liver: Hepatomegaly. Gallbladder and Biliary Tree: Surgically absent or decompressed. Spleen: Unremarkable Pancreas: The pancreas is normal in appearance without focal lesions or abnormal enhancement. Adrenal Glands: Unremarkable Kidneys: No hydronephrosis. Bladder: Unremarkable Bowel: Post gastric bypass. Moderate volume colonic stool. Mild diffuse prominence of small and large bowel loops. The appendix is not visualized; however, no secondary findings of acute appendicitis id entified. Ascites: Absent Lymphadenopathy: No mesenteric, retroperitoneal or periportal lymphadenopathy. Abdominal Wall and Mesentery: Diffuse body wall edema. Vasculature: The visualized abdominal aorta is normal in size and caliber. Abdominal and pelvic vess els demonstrate normal enhancement. Pelvic Organs: Unremarkable Musculoskeletal: No aggressive focal bony lesions, acute fractures or dislocation. Spinal fixation tello rdware and disc spacer material at L4-L5. IMPRESSION: Nonspecific bowel-gas pattern. Moderate volume colonic stool. Otherwise, no acute findings.
== END 2024-10-10 23:59 | disposition home or self-care (01) ==
LOC: RAD 07:30
PROVIDERS: ATTEND Surgery
DX: R16.0 Hepatomegaly, not elsewhere classified (principal); I25.10 Atherosclerotic heart disease of native coronary artery without angina pectoris; R10.9 Unspecified abdominal pain; I70.0 Atherosclerosis of aorta
CPT/HCPCS: 36415; 74177; 80048; Q9967

== ENCOUNTER 2024-12-23 12:46 | Outpatient (CLI) | payer MEDICARE, MEDICAID ==
[~2024-12-23 12:46] MED LIST changes: -LATA2.5D14 EACHEYE; +LATA2.5D7 EACHEYE
--- NOTE | 2024-12-24 05:10 | RADIOLOGY REPORT ---
CLINICAL INDICATION: PAIN IN LEFT WRIST TECHNIQUE: Noncontrast CT of the left wrist was performed. Sagittal and coronal reformatted images ar e provided. COMPARISON: MR MRI UPPER EXTREMITY LEFT on DOS: 12/23/24 CT Dose: CTDI volume is 3.1 mGy. Dose-length product is 141.2 mGy*cm FINDINGS: No fracture or dislocation. There is a radiodense spacer in the 2nd metacarpal bone and the 2nd proxi mal phalanx. There is dorsal subluxation of the 2nd metacarpal bone relative to the 2nd proximal phal anx. There is no cortical erosion. There is severe radiocarpal joint space narrowing with degenerativ e cysts on both sides of the joint. Proximal migration of the capitate through a widened scapholunat e interval that measures 1.1 cm. There is significant dorsal tilt of the lunate. There is chondrocalc inosis in the proximal carpal row. There is distal radioulnar joint space narrowing and small subchon dral cysts in the distal ulna. Soft tissues are unremarkable. IMPRESSION: 1. No acute osseous abnormality in the left wrist or hand. 2. 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 3. Postsurgical changes in the 2nd metacarpal bone and the 2nd proximal phalanx. There is dorsal subl uxation of the 2nd metacarpal relative to the 2nd proximal phalanx. All CT scans at this medical facility are performed using dose modulation techniques as appropriate t o a performed exam including the following: Automated exposure control was utilized; adjustment of th e MA and/or KV according to patient size; and use of iterative reconstruction technique.
--- NOTE | 2024-12-24 07:31 | RADIOLOGY REPORT ---
CLINICAL INFORMATION: Pain in the left wrist COMPARISON: CT CT UPPER EXTREMITIES on DOS: 12/23/24, FOREARM,INCL.ONE JOINT on DOS: 02/01/22, HAND, CO MPLETE (3VW MIN) on DOS: 02/01/22 TECHNIQUE: Multisequence multiplanar MRI images of the left wrist were obtained without contrast. FINDINGS: TFCC: Limited evaluation of the TFCC due to artifact on the sequences obtained. There is thinning of the articular disc of the TFCC with likely partial-thickness perforations. There is also edema and in distinctness of the fibers of the TFCC near its ulnar styloid and foveal attachments, likely sequela of sprains and partial tears, of uncertain chronicity, may be chronic. ULNAR VARIANCE: Minimal ulnar negative variance. DRUJ: No dislocation or subluxation. Small to moderate amount of fluid in the DRUJ. LIGAMENTS: There is widening of the scapholunate interval up to 4.3 mm . due to scapholunate ligament tear. There is associated proximal migration of the capitate. Lunotriquetral ligament appears intact . Attenuated, indistinct fibers of the radial collateral ligament of the wrist, may be sequelae of sp rain, of uncertain chronicity, may be chronic. Ulnar collateral ligament is also attenuated and indis tinct, likely due to prior sprain. FLEXOR TENDONS: Mildly thickened flexor carpi radialis tendon, likely mild tendinosis. No flexor tend on tear visualized. CARPAL TUNNEL: There is prominent bowing of the flexor retinaculum and flattening of the median nerve within the carpal tunnel, which may be seen with carpal tunnel syndrome in the appropriate clinical setting. EXTENSOR TENDONS: Mild tendinosis of the extensor carpi ulnaris tendon near the level of the distal u bundle helper. No tear. BONES/JOINTS: There is prominent sclerosis at the proximal pole of the scaphoid with deformity, may b e sequelae of prior osteonecrosis. Moderate to marked arthritic changes at the radiocarpal joint with severe joint space narrowing and subchondral cystic change. There is marrow edema at the distal radi al metaphysis and extending adjacent to the articular surface, possible contusion. No discrete fractu re plane identified. There is widening of the scapholunate interval and proximal migration of the cap itate. There is dorsal tilt of the lunate, which may be seen with dorsal intercalated segmental insta bility. Prominent moderate to marked arthritic changes of the articulation between the lunate and cap itate. Moderate arthritic changes at the triscaphe joint. Mild arthritic changes at the 1st carpometa carpal joint. There is prominent T2 hyperintense signal along the caudal aspect of the pisotriquetral recess and extending into the volar soft tissues, measuring up to 1.0 cm in greatest AP dimension, 0 .8 cm in greatest transverse dimension, and 1.1 cm in craniocaudal dimension, suspected ganglion cyst , coursing in close proximity to the flexor carpi ulnaris tendon just proximal to its insertion. OTHER: Limited examination due to motion artifact and technique, with examination done using a knee c oil instead of a wrist coil due to wrist coil not available. There are limited fat saturation sequen jane, including no fat saturation on the IR coronal sequence. IMPRESSION: 1. Limited examination for the reasons described above. 2. Marrow edema in the distal radius, may be due to focal marrow contusion in the setting of recent t rauma. No discrete fracture plane identified given the limitations of the examination. Correlate with clinical findings. 3. Thinning of the articular disc of the TFCC with probable partial-thickness perforations. Sequelae of sprains and partial tears of the ulnar styloid and foveal attachments of the TFCC, of uncertain ch ronicity, may be chronic. 4. 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 Prominent sclerosis and cystic change in the scaphoid, with deformity at its proxi mal pole, may be sequelae of prior osteonecrosis. 5. Dorsal tilt of the lunate with suspected dorsal intercalated segmental instability. 6. T2 hyperintense, lobulated structure along the caudal aspect of the pisotriquetral recess and exte nding to adjacent volar soft tissues, likely ganglion cyst. 7. Attenuated, indistinct fibers of the radial collateral ligament and ulnar collateral ligament, lik ashly sequela of prior sprains, of uncertain chronicity. 8. Findings consistent with carpal tunnel syndrome in the appropriate clinical setting. 9. Additional findings as detailed above.
== END 2024-12-23 23:59 | disposition home or self-care (01) ==
LOC: RAD 12:46
PROVIDERS: ATTEND Orthopaedic Surgery
DX: M19.042 Primary osteoarthritis, left hand (principal); M25.532 Pain in left wrist; G56.02 Carpal tunnel syndrome, left upper limb; M77.8 Other enthesopathies, not elsewhere classified; M19.032 Primary osteoarthritis, left wrist; M67.432 Ganglion, left wrist; Z98.890 Other specified postprocedural states; R60.0 Localized edema
CPT/HCPCS: 73200; 73221

== ENCOUNTER 2025-02-18 00:39 | Inpatient (IN) | payer MEDICARE, MEDICAID ==
[~2025-02-18] VITALS: Ht 160 cm; Wt 74.3 kg
[~2025-02-18 00:39] MED LIST changes: +ZOLP5TAB18 PO; -ZOLP5TAB8 PO
[2025-02-18 01:03] LABS: MEAN PLATELET VOLUME 7.5 FL (7.4-10.4); RED CELL DISTRIBUTION WIDTH 14.0 % (11.5-14.5)
--- NOTE | 2025-02-18 01:07 | Physician Documentation ---
History of Present Illness ~ Chief Complaint: Abdominal Pain Stated Complaint: ABD PAIN M ALS Time Seen by MD: 01:05 Primary Medical Doctor: Nhung GARRISON, [employer] DR. LEDESMA HPI Patient presents to the emergency room with chief complaint of abdominal pain. She is not passing any gas. She said she had had any bowel movements in two days. She does take pain medications. She tried some tea with sent a got in his earlier today without relief. 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 She states that this feels similar. Medication Reconciliation Allergies: Coded Allergies: amoxicillin (Verified Allergy, Intermediate, ITICHING AND SWELLLING, 04/10/24) PT CALLED ON 02/02/22 TO ADVISE OF NOTED REACTION TO AUGMENTIN. PT ADVISED TO STOP TAKING MEDICATION AND TO COME INTO THE ER. clavulanic acid (Verified Allergy, Intermediate, ITICHING AND SWELLLING, 04/10/24) PT CALLED ON 02/02/22 TO ADVISE OF NOTED REACTION TO AUGMENTIN. PT ADVISED TO STOP TAKING MEDICATION AND TO COME INTO THE ER. ceftriaxone (Verified Allergy, Unknown, 04/10/24) divalproex sodium (Verified Allergy, Unknown, 04/10/24) doxycycline (Verified Allergy, Unknown, 04/10/24) pregabalin (Verified Allergy, Unknown, "CAN'T REMEMBER", 04/10/24) terazosin (Verified Allergy, Unknown, 04/10/24) morphine (Verified Adverse Reaction, Intermediate, CRAZY, 04/10/24) PT STATES MAKES HER CRAZY codeine (Unverified Adverse Reaction, Mild, N/V, 04/10/24) bupropion (Verified Adverse Reaction, Unknown, 04/10/24) Uncoded Allergies: IV CONTRAST (Allergy, Severe, 02/21/21) SOB CELIAC DISEASE (Allergy, Unknown, 02/01/22) DAIRY (Allergy, Unknown, 01/03/22) GRAINS (Allergy, Unknown, 01/03/22) Scheduled Atorvastatin Calcium (Atorvastatin Calcium), 1 TAB PO DAILY, (Reported) Azelastine HCl (Azelastine HCl), 1 DROP EACHEYE BID, (Reported) Calcitriol (Calcitriol), 2 CAP PO DAILY, (Reported) Citalopram Hydrobromide (Citalopram HBr), 3 TAB PO DAILY, (Reported) Cyanocobalamin (Vitamin B-12) (Vitamin B-12), 1 TAB PO DAILY, (Reported) Empagliflozin (Jardiance), 1 TAB PO DAILY, (Reported) Ferrous Sulfate (Ferrous Sulfate), 325 MG PO WB Furosemide (Lasix), 1 TAB PO DAILY, (Reported) Gabapentin (Neurontin), 3 CAP PO BID@0800,2000, (Reported) Insulin Glargine,Hum.rec.anlog* (Lantus*), 30 UNITS SQ HS, (Reported) Latanoprost (Latanoprost), 1 DROP EACHEYE HS, (Reported) Levothyroxine Sodium (Synthroid), 1 TAB PO DAILY, (Reported) Linaclotide (Linzess), 1 CAP PO QAM, (Reported) Linagliptin (Tradjenta), 1 TAB PO DAILY, (Reported) Nystatin (Nystatin), 1 APPLIC TOP BID, (Reported) Omeprazole (Omeprazole), 1 CAP PO BID, (Reported) Potassium Chloride* (K-Dur*), 1 TAB PO BID, (Reported) Sacubitril/Valsartan (Entresto 24 mg-26 mg Tablet), 1 TAB PO Q12H, (Reported) Scheduled PRN Hydrocodone Bit/Acetaminophen (Hydrocodone-Apap 10-325 Tablet), 1 TAB PO Q6H PRN for pain, (Reported) Zolpidem Tartrate (Zolpidem Tartrate), 1 TAB PO HSPRN PRN for sleep, (Reported) Past Medical History Past Medical History: Peripheral Neuropathy, Coronary Artery Disease, Congestive Heart Failure, Hypertension, Asthma, GI Bleed, Inflammatory Bowel Dz, Pancreatitis, Hernia, Kidney Stones, Diabetes, Thyroid (unspecified), Arthritis, Chronic Pain, Chronic Back Pain, Anxiety, Depression Past Surgical History: coronary bypass surgery, gastric bypass, orthopedic surgeries, pacemaker Alcohol Use: None Drug Use: marijuana Lives with: Alone Lives In: Home Occupation: retired Review of Systems ROS All review of systems negative except as per HPI Physical Exam Vital Signs: Temperature: 98.2, Source: Oral, Heart Rate: 64, Respiratory Rate: 18, BP: 122/70, Pulse Oximetry: 94, Weight: 74.350 Oxygen Flow Rate: 0 Physical Exam General: Patient is awake, alert, oriented x4 in no acute distress Head: Normocephalic and atraumatic. Eyes: Conjunctival normal. EOMI. PERRL. ENT: Mucous membranes moist. Neck: Supple, trachea is midline. Chest: Clear to auscultation bilaterally without rales, rhonchi, or wheezes. There is no accessory muscle use or retractions. Cardiac: RRR without murmurs, gallops, or rubs. Abd: Soft, nondistended, nontender, with normoactive bowel sounds. No guarding, rebound, or rigidity. Progress Results/Orders Results/Orders Orders - PARDEEP MARTIN MD Urinalysis, Cult If Indicated (02/18/25 00:44) Straight Cath For Urine Sample (02/18/25 00:44) Ct Abdomen Pelvis (02/18/25 01:11) * (A) Rincon- Protocol * Q12H@07,19 (02/18/25 02:25) Nasal Gastric Tube (02/18/25 02:43) Page Hospitalist (02/18/25 02:43) Fill Out Med Reconciliation (02/18/25 02:43) Completed Orders - PARDEEP MARTIN MD Cbc/Diff (02/18/25 00:44) Lipase (02/18/25 00:44) CMP (02/18/25 00:44) Ct Abdomen Pelvis (02/18/25 01:11) Ondansetron Disint. Tablet (Zofran Odt T (02/18/25 01:15) Morphine 4mg/Ml Inj. (Morphine Inj.) (02/18/25 02:25) Normal Saline 1000ml (0.9% Sodium Chlori (02/18/25 02:25) Lidocaine 2% Jelly 11ml Syr (Glydo-Lidoc (02/18/25 02:25) Fentanyl/Pf (Fentanyl 0.05 Mg/Ml Syringe (02/18/25 02:45) Medications Received in ER Medications (Trade) Dose Ordered Sig/Rhoda Route PRN Reason Start Time Stop Time Status Last Admin Dose Admin Sodium Chloride 1,000 ml @ 1,000 mls/hr ONCE ONCE IV 02/18/25 02:25 02/18/25 03:24 DC 02/18/25 03:13 1,000 MLS/HR (GLYDO-Lidocaine 2% Topical Jelly 11mL syringe) 1 applic ONCE ONCE TOP 02/18/25 02:25 02/18/25 02:26 DC 02/18/25 03:11 1 APPLIC (fentaNYL 0.05 MG/ML syringe) 75 mcg ONCE ONCE IV 02/18/25 02:45 02/18/25 03:00 DC 02/18/25 03:13 75 MCG Vital Signs 02/18/25 02/18/25 02/18/25 02/18/25 00:47 01:21 02:21 03:13 Temp 98.2 Pulse 64 60 60 Resp 18 16 14 12 B/P (MAP) 122/70 108/62 (77) 137/74 (95) Pulse Ox 94 98 99 O2 Flow Rate 0 2.0 2.0 02/18/25 03:21 Pulse 60 Resp 13 B/P (MAP) 131/70 (90) Pulse Ox 96 O2 Flow Rate 0 Laboratory Tests Test 02/18/25 00:50 02/18/25 03:10 White Blood Count 10.3 Red Blood Count 3.85 L Hemoglobin 12.4 Hematocrit 35.8 Mean Corpuscular Volume 93.0 Mean Corpuscular Hemoglobin 32.1 H Mean Corpuscular Hemoglobin Concent 34.5 Red Cell Distribution Width 14.0 Platelet Count 209 Mean Platelet Volume 7.5 Neutrophils (%) (Auto) 86.4 H Lymphocytes (%) (Auto) 5.0 L Monocytes (%) (Auto) 6.9 Eosinophils (%) (Auto) 1.2 Basophils (%) (Auto) 0.5 Neutrophils # (Auto) 8.9 H Lymphocytes # (Auto) 0.5 L Monocytes # (Auto) 0.7 Eosinophils # (Auto) 0.1 Basophils # (Auto) 0.1 CBC Comment Sodium Level 125 L Potassium Level 4.3 Chloride Level 95 L Carbon Dioxide Level 26.2 Anion Gap 4 L Blood Urea Nitrogen 20 H Creatinine 0.57 Estimated GFR/1.73 m2 > 90 BUN/Creatinine Ratio 35.1 H Glucose Level 168 H Calcium Level 8.9 Total Bilirubin 0.6 Aspartate Amino Transf (AST/SGOT) 18 Alanine Aminotransferase (ALT/SGPT) 31 Alkaline Phosphatase 81 Total Protein 5.8 L Albumin 3.1 L Globulin 2.7 Albumin/Globulin Ratio 1.1 Lipase 73 Chemistry Comments Urine Comment Medical Decision Making Additional information obtaine: old records Findings Patient presents to the emergency room with nausea vomiting abdominal pain. Differentials include but are not limited to gastritis cholecystitis diverticulitis pancreatitis small-bowel obstruction kidney stone aortic pathology therefore emergent labs and imaging indicated. Patient's CT shows partial small-bowel obstruction however she states she has not passing any flatus therefore I feel she is obstructed and NG tube has been placed. Patient also noted to be retaining urine. Rincon placed. Diff Dx GI Bleed:Consideration: Include: Bleeding diathesis Diff Dx Pain:Considerations: Include: -Missed Diff Dx N/V/D:Considerations: Include: Diarrhea - viral Diff Dx Rectal:Considerations: Include: Foreign body Departure Admitted to Inpatient Unit: yes, to hospitalist Impression: Primary Impression: Small bowel obstruction Additional Impression: Acute urinary retention Condition: Guarded Referrals: NO PRIMARY CARE PROVIDER (PCP) Signature Scribe Signature: No scribe Attestation: The note accurately reflects work and decisions made by me.Pardeep Martin MD 02/18/25 03:54 PARDEEP MARTIN MD Feb 18, 2025 01:07
[2025-02-18 01:17] LABS: CREATININE 0.57 MG/DL (0.40-0.90); TOTAL CARBON DIOXIDE 26.2 MMOL/L (24-32); eCRCL 75 ML/MIN; eGFR > 90 ML/MIN
[2025-02-18] MEDS: ondansetron 4mg rapidly disintigrating tab PO ONE (01:20)
[2025-02-18] MEDS: morphine 4 MG/ML inj SYRINge IV ONE (02:33)
--- NOTE | 2025-02-18 02:37 | RADIOLOGY REPORT ---
Exam: CT CT ABDOMEN PELVIS History: abd pain Comparison Study: CT CT ABDOMEN PELVIS W/ IV ORAL CONTRAST on DOS: 10/10/24, CT CT ABDOMEN PELVIS W/ RECTAL CON CONTRAST on DOS: 07/27/24, CT ABDOMEN+PELVIS WO IV CON on DOS: 07/27/24, CT CT ABDOMEN PELVIS on DOS: 07/24/23 Technique: Multidetector spiral CT of the abdomen was performed from lung bases to pubic symphysis. Imaging was performed without IV contrast. Axial, coronal and sagittal multiplanar reformats were obtained from the axial data set by the technologist. Radiation Dose : 1. Abdomen/Pelvis: CTDIvol 28.96 mGy, DLP 1530.38 mGy*cm. Findings: Evaluation of solid organs is limited due to lack of intravenous contrast use. Lung Bases: No acute or significant lung base finding. Mild bibasilar atelectasis. Cardiomegaly status post median sternotomy. Cardiac pacing leads. Atherosclerotic vascular calcifications. No pleural or pericardial effusion. Liver: The liver is normal in size. No focal lesions. Gallbladder and Biliary Tree: Unremarkable Spleen: Unremarkable Pancreas: The pancreas is grossly normal in appearance. Adrenal Glands: Unremarkable Kidneys: Kidneys are grossly normal without calculi or hydronephrosis. Bladder: Grossly unremarkable for degree of distention. Bowel: The stomach is grossly normal in appearance with postsurgical changes. Anastomotic bowel sutures are present within the right abdomen. Moderately dilated fluid and gas-filled segments of predominantly small bowel throughout the abdomen and pelvis exhibiting some air-fluid levels and diffuse circ umferential wall thickening suggestive of partial obstruction. A segment of bowel is noted within hernia defect within the right lateral abdominal wall. The appendix is not visualized; however, no secondary findings of acute appendicitis identified. Ascites: Moderate abdominopelvic ascites. Lymphadenopathy: No mesenteric, retroperitoneal or periportal lymphadenopathy. Abdominal Wall and Mesentery: Postsurgical changes status post ventral abdominal wall herniorrhaphy. Vasculature: The visualized abdominal aorta is normal in size and caliber. Atherosclerotic vascular calcifications. Evaluation of abdominal and pelvic vessels is limited due to lack of intravenous contrast. Pelvic Organs: Unremarkable Musculoskeletal: No aggressive focal bony lesions, acute fractures or dislocation. Hardware status post L4-L5 discectomy and posterior lumbar interbody fusion. IMPRESSION: 1. Moderately dilated fluid and gas-filled segments of predominantly small bowel throughout the abdomen and pelvis exhibiting some air-fluid levels and diffuse circumferential wall thickening suggestive of partial obstruction. A segment of bowel is noted within hernia defect within the right lateral abdominal wall. 2. Moderate abdominopelvic ascites. Radiation optimization: All CT scans at this facility use at least one of these dose optimization techniques: automated exposure control mA and/or kV adjustment per patient size (includes targeted exams where dose is matched to clinical indication) or iterative reconstruction.
[2025-02-18] MEDS: LidoCAINE 2% Topical Jelly 11mL syringe (UROJET) TOP ONE (03:11)
[2025-02-18] MEDS: normal saline 1000ml 1,000 ML IV ONE (03:13)
[2025-02-18] MEDS: fentaNYL/PF 50MCG/1 ML 2ML syringe IV ONE (03:13)
[2025-02-18 03:32] LABS: LEUKOCYTE ESTERASE ,URINE NEGATIVE (Neg); NITRITES, URINE NEGATIVE (Neg); OCCULT BLOOD,URINE NEGATIVE (Neg)
[2025-02-18] MEDS ORDERED: potassium Cl 40MEQ/1/2NS 520ml 520 ML IV PRN (03:50)
[2025-02-18] MEDS ORDERED: HYDROmorphone/PF 0.2 MG/ML SYRINGE IV PRN (03:50)
[2025-02-18] MEDS ORDERED: HYDROmorphone inj. 0.5 MG/0.5 ML DISP.SYRIN IV PRN (03:50)
[2025-02-18] MEDS: normal saline 1000ml 1,000 ML IV SCH (03:50)
[2025-02-18] MEDS ORDERED: potassium Cl 20 mEq SR tablet PO PRN ×2 (03:50)
[2025-02-18] MEDS ORDERED: magnesium Cl slow-release 64mg tablet PO PRN (03:50)
[2025-02-18] MEDS ORDERED: magnesium hydroxide 30ml (MOM) UD suspension PO PRN (03:50)
[2025-02-18] MEDS ORDERED: mag hydrox/Alum hydrox/simeth 30ml oral suspension PO PRN (03:50)
[2025-02-18] MEDS ORDERED: magnesium sulf-water 2g/50mL 50 ML IV PRN (03:50)
[2025-02-18] MEDS ORDERED: magnesium sulf-water 4G/100mL 100 ML IV PRN (03:50)
[2025-02-18] MEDS ORDERED: CefTRIAXone/D5W-Rocephin 1gm 50 ML IV SCH (04:05)
[2025-02-18] MEDS ORDERED: metroNIDAZOLE-Flagyl 500mg/NS 100 ML IV SCH (04:05)
[2025-02-18 04:09] LABS: UA COLLECTION TYPE FOLEY CATH
--- NOTE | 2025-02-18 04:31 | HISTORY AND PHYSICAL-Residence ---
History & Physical Providers to CC Resident Creating Document: HORACIO CHRISTIANSON, RES ~ History of Present Illness Primary Medical Doctor: Nhung GARRISON, HOMEOPATHIC DOCTOR DR. LEDESMA Reason for Admit\\Complaint: Partial small bowel obstruction History of Present Illness This is a 69-year-old female with a past medical history CAD status post CABG in 2022, CHF, type 2 diabetes mellitus, hypothyroidism, osteoporosis, degenerative disc disease who presents to the Emergency Department with abdominal pain that began two days ago. The pain is described as sharp, constant, and rated 9/10 in intensity. It radiates to the back and is associated with dry heaves, abdominal distention. The patient denies any aggravating or relieving factors. 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 She states that this feels similar. Patient states that her last bowel movement is 2 days ago and she did not passed any gas She reports no fever, chills, nausea, vomiting (other than dry heaves), diarrhea, hematochezia, melena, dysuria, hematuria, chest pain, shortness of breath, or recent travel Allergies: Coded Allergies: amoxicillin (Verified Allergy, Intermediate, ITICHING AND SWELLLING, 04/10/24) PT CALLED ON 02/02/22 TO ADVISE OF NOTED REACTION TO AUGMENTIN. PT ADVISED TO STOP TAKING MEDICATION AND TO COME INTO THE ER. clavulanic acid (Verified Allergy, Intermediate, ITICHING AND SWELLLING, 04/10/24) PT CALLED ON 02/02/22 TO ADVISE OF NOTED REACTION TO AUGMENTIN. PT ADVISED TO STOP TAKING MEDICATION AND TO COME INTO THE ER. ceftriaxone (Verified Allergy, Unknown, 04/10/24) divalproex sodium (Verified Allergy, Unknown, 04/10/24) doxycycline (Verified Allergy, Unknown, 04/10/24) pregabalin (Verified Allergy, Unknown, "CAN'T REMEMBER", 04/10/24) terazosin (Verified Allergy, Unknown, 04/10/24) morphine (Verified Adverse Reaction, Intermediate, CRAZY, 04/10/24) PT STATES MAKES HER CRAZY codeine (Unverified Adverse Reaction, Mild, N/V, 04/10/24) bupropion (Verified Adverse Reaction, Unknown, 04/10/24) Uncoded Allergies: IV CONTRAST (Allergy, Severe, 02/21/21) SOB CELIAC DISEASE (Allergy, Unknown, 02/01/22) DAIRY (Allergy, Unknown, 01/03/22) GRAINS (Allergy, Unknown, 01/03/22) Home Medications Home Medications Active Ferrous Sulfate 325 Mg (65 Mg Iron) Tablet 325 Mg PO WB 30 Days Reported Lantus* (Insulin Glargine) 100 Unit/1 Ml Vial 30 Units SQ HS K-Dur* (Potassium Chloride) 20 Meq Tab.prt.sr 1 Tab PO BID Nystatin 100,000 Unit/Gram Cream.gm. 1 Applic TOP BID Hydrocodone-Apap 10-325 Tablet (Acetaminophen/Hydrocodone Bitart) 10mg/325mg Tablet 1 Tab PO Q6H PRN Latanoprost 0.005 % Drops 1 Drop EACHEYE HS Vitamin B-12 (Cyanocobalamin (Vitamin B-12)) 1,000 Mcg Tablet 1 Tab PO DAILY Omeprazole 20 Mg Capsule.dr 1 Cap PO BID 30 Days Citalopram HBr (Citalopram Hydrobromide) 10 Mg Tablet 3 Tab PO DAILY 30 Days Lasix (Furosemide) 40 Mg Tablet 1 Tab PO DAILY 30 Days Neurontin (Gabapentin) 300 Mg Capsule 3 Cap PO BID@0800,2000 Atorvastatin Calcium 80 Mg Tablet 1 Tab PO DAILY Tradjenta (Linagliptin) 5 Mg Tablet 1 Tab PO DAILY 30 Days Zolpidem Tartrate 5 Mg Tablet 1 Tab PO HSPRN PRN 30 Days Entresto 24 mg-26 mg Tablet (Sacubitril/Valsartan) 24 Mg-26 Mg Tablet 1 Tab PO Q12H 30 Days Azelastine HCl 0.05 % Drops 1 Drop EACHEYE BID Linzess (Linaclotide) 72 Mcg Capsule 1 Cap PO QAM Synthroid (Levothyroxine Sodium) 50 Mcg Tablet 1 Tab PO DAILY Jardiance (Empagliflozin) 25 Mg Tablet 1 Tab PO DAILY 30 Days Calcitriol 0.25 Mcg Capsule 2 Cap PO DAILY Past Medical History Past Medical History CAD s/p CABG in 2022 CHF Type 2 diabetes Hyperparathyroidism Hypothyroidism Osteoporosis Degenerative disc disease Past Surgical History Surgical History Comment Kirti-en-y CABG Cholecystectomy Appendectomy Left hand, unspecified Right shoulder replacement x2 Tonsillectomy Umbillical hernia repair Cataracts Past Social History Social History Comment Primary care physician-Dr. Zuleta Endoscopy Technican Dr. Montoya Water Purifier Operator Dr. Dior Patient lives in home and independent home support services will take care of the patient She is able to ambulate with cane Smoking: Non-Smoker Alcohol Use: None Drug Use: Marijuana Lives with: Alone Lives In: Home Occupation: retired ROS Constitutional: Reports: no symptoms reported Eyes: Reports: no symptoms reported ENT: Reports: no symptoms reported Respiratory: Reports: other (dry heaves) Gastrointestinal: Reports: abdominal pain, constipated, poor appetite Genitourinary: Reports: no symptoms reported Female Genitalia: Reports: no reported symptoms Neurological: Reports: no symptoms reported Musculoskeletal: Reports: no symptoms reported Integumentary: Reports: no symptoms reported Allergic/Immunologic: Reports: no symptoms reported Hematologic/Lymphatic: Reports: no symptoms reported Endocrine: Reports: no symptoms reported Psychiatric: Reports: no symptoms reported Exam Vitals: Vital Signs Date Time Temp Pulse Resp B/P (MAP) Pulse Ox O2 Delivery O2 Flow Rate FiO2 02/18/25 03:21 60 13 131/70 (90) 96 0 02/18/25 00:47 98.2 General: GENERAL: Awake, alert, oriented. HEENT : Normocephalic, atraumatic, pupils equal and reactive to light, extraocular movements intact, no scleral icterus or conjunctival pallor, oral mucosa moist NECK: neck is supple, trachea midline, no lymphadenopathy, no thyromegaly, no JV distention RESPIRATORY: Chest expansion equal bilaterally, breath sounds vesicular, no wheezes, or rhonchi. No use of accessory muscles, no tenderness on palpation. CARDIOVASCULAR: S1 and S2 heard, no murmurs, no rubs, or gallops ABDOMEN: Distended, tenderness on palpation, decreased bowel sounds. No organomegaly, no palpable mass, no rebound or guarding NEUROLOGICAL: Alert, oriented, normal memory, speech is normal Cranial nerves II-XII- intact Motor strength 4/5 Sensation-intact in all extremities Reflexes +2 and symmetrical Coordination is intact EXTREMITIES: Bilateral 1+ pitting Edema present, peripheral pulses felt, no deformities Psychiatric:Appropriate mood and affect,No hallucinations or suicidal ideation Diagnostic Data Last Recorded Lab Results: 02/18/25 0050 02/18/25 0050 Advance Care Planning Advanced Care plannin - 30 Minutes Additional Plan 69 years old female with past medical history of type II DM, CHF, Hyperlipidemia, Hypothyroidism, Peripheral neuropathy is currently evaluated for Small Bowel obstruction Partial Small bowel Obstruction Patient under went Exploratory laparotomy, Right Hemicolecetomy for Cecal volvulus with the exicision of mesh from the umbilical hernia repaired surgery and adhesiolectomy CT Abdomen shows- Moderately dilated fluid and gas-filled segments of predominantly small bowel throughout the abdomen and pelvis exhibiting some air-fluid levels and diffuse circumferential wall thickening suggestive of partial obstruction. A segment of bowel is noted within hernia defect within the right lateral abdominal wall. Moderate abdominopelvic ascites. Patient is Currently on NPO Started IV NS 75 cc/hr Will monitor for fluid overload in view of history of CHF NG tube in place, On antiemetics Patient is allergic to most of the antibiotics-started on IV Azotreonam 1 g and Flagyl 500 mg IV q.8h Pain control with ketorolac as patient is allergic to morphine/Dilaudid Monitor CBC/CMP Hyponatremia Na -125 Continue normal saline 100 cc/hour CAD s/p CABG in 2022 Congestive heart failure not in decompensation Echo on 08/15-shows LVEF of 45% Patient follows with Dr Ledesma Chest X-ray- Enteric tube in slightly superior positioning, recommend 5-10 cm advancement. Increased heart size from 07/27/2024. [id number] Patient takes Lasix 40 mg, Entresto, Jardiance at home, Hold lasix and continue home med after med rec Type 2 diabetes mellitus Type 2 diabetes Hyperparathyroidism Patient blood glucose level-160 Follow up with HbA1c Started on hyperglycemia/hypoglycemia protocol hypothyroidism Patient takes levothyroxine 50 mcg at home Follow up with TSH Continue levothyroxine after med rec Peripheral neuropathy Patient takes gabapentin 300 mg at home, continue home after med rec Osteoporosis Degenerative disc disease Continue home meds. Pending med rec Code Status: DVT prophylaxis: SCDs Line/tube: Peripheral Nutrition: NPO PT: Order Prognosis: Guarded Disposition: Patient will be monitored in surgery, we will consult Attending Physician Attestation Evaluation via HIPAA compliant A/V device. I discussed the case with the resident and I agree with the resident's documentation. 69-year-old woman with a history of CAD status post CABG in 2022, CHF, type 2 diabetes mellitus, hypothyroidism and recent right hemicolectomy, excision of abdominal mesh, multiple allergies to beta-lactams and opioid analgesics, prior R-en-Y gastric bypass and recent right hemicolectomy, excision of abdominal mesh, and lysis of adhesions for cecal volvulus now admitted with abdominal pain. CT abdomen and pelvis reveals moderately dilated fluid and gas-filled segments of predominantly small bowel throughout the abdomen and pelvis exhibiting some air-fluid levels and diffuse circumferential wall thickening suggestive of partial obstruction. A segment of bowel is noted within hernia defect within the right lateral abdominal wall. Moderate abdominal-pelvic ascites is present. The treatment plan includes: Urgent General Surgery consultation. NG to LIS. Aztreonam and metronidazole empiric antimicrobial therapy. Analgesia with synthetic opioid preparation (e.g., fentanyl). Maintenance IVF with a balanced crystalloid solution. Time spent 50 minutes. Date of Service: Feb 18, 2025 Billing Provider: BIRGIT MCKEON MD, SATISH, RES Feb 18, 2025 04:31 BIRGIT MCKEON MD Feb 18, 2025 06:30
--- NOTE | 2025-02-18 04:46 | RADIOLOGY REPORT ---
CHEST RADIOGRAPH Indication: NG TUBE PLACEMENT Technique: 2 view Comparison: DI CHEST,SINGLE VIEW on DOS: 07/27/24, DI CHEST,SINGLE VIEW on DOS: 07/24/23, CHEST,SINGLE VIEW on DOS: 02/01/22 FINDINGS: Lines and Tubes: Enteric tube with side port overlying the distal esophagus and tip overlying the left upper quadrant. Unchanged right implanted cardiac device. Lungs/Pleura: No acute consolidation. Bilateral interstitial prominence. Probable trace pleural effusions. Cardiomediastinum: Intervally enlarged heart size. Prior CABG. Other: No acute osseous abnormality. Sternotomy wires and right shoulder arthroplasty. IMPRESSION: 1. Enteric tube in slightly superior positioning, recommend 5-10 cm advancement. 2. Increased heart size from 07/27/2024. Other findings associated with mild heart failure.
[2025-02-18 04:47] LABS: PRO BRAIN NATRIURETIC PEPTIDE 1151 PG/ML (0-125)
[2025-02-18 05:22] LABS: INR 1.0 INR
[2025-02-18] MEDS: ketorolac trometh 30MG/ML vial 30 MG/ML VIAL IV ONE ×2 (06:00→16:21)
[2025-02-18] MEDS ORDERED: fentaNYL 50MCG/ML 2ML intranasal KIT (WASTE REMAINDER W/WITNESS) NAS STA (06:20)
--- NOTE | 2025-02-18 06:48 | RADIOLOGY REPORT ---
CHEST RADIOGRAPH Indication: suspecting Pulmonary edema Technique: Single frontal view of the chest was obtained Comparison: DI CHEST,SINGLE VIEW on DOS: 02/18/25 FINDINGS: Lines and Tubes: AICD/ pacemaker noted. The enteric tube terminates in the stomach. Lungs: No focal consolidation. Pleura: No effusion. No pneumothorax. Cardiomediastinal contours: Cardiomegaly. Bones: No acute osseous abnormality. There is a right shoulder prosthesis. Status post median sternotomy. Discontinuity of some of the sternal wires. IMPRESSION: 1. Cardiomegaly. 2. No acute pulmonary disease.
[2025-02-18] MEDS: docusate sod 100mg capsule PO SCH (08:00)
[2025-02-18] MEDS: K and/or MAG REPLACEMENT MC SCH (08:00)
[2025-02-18] MEDS ORDERED: piperacillin/tazo 4.5gm/100ml 100 ML IV SCH (08:00)
[2025-02-18] MEDS: metroNIDAZOLE-Flagyl 500mg/NS 100 ML IV SCH (08:02)
[2025-02-18] MEDS: aztreonam inj. 1,000 MG in normal saline 100ml IV soln 100 ML IV SCH (09:04)
[2025-02-18] MEDS: fentaNYL/PF 50MCG/1 ML 2ML syringe IV PRN (09:42)
[2025-02-18] MEDS: ondansetron/PF 4mg/2ml inj IV PRN (11:55)
[2025-02-18 12:15] VITALS: BP 118/60; PULSE 65; RESP 18; TEMP 98.6; O2SAT 97
[2025-02-18] MEDS ORDERED: dextrose 50%-water 50ml dispensing syringe IV PRN (16:00)
[2025-02-18] MEDS ORDERED: DEXTROSE 15 GM of carb/4 tabs (each vial/BOTTLE has 4 tablets) PO PRN ×2 (16:00)
[2025-02-18] MEDS ORDERED: glucagon, human recombinant 1mg kit SUBCUT PRN (16:00)
[2025-02-18] MEDS: dextrose 50%-water 50ml dispensing syringe IV PRN (16:21)
[2025-02-18] MEDS: INSULIN LISPRO 100 UNIT/ML INSULN.PEN MULTI-DOSE SQ SCH (17:00)
[2025-02-18 18:00] VITALS: BP 118/53; PULSE 67; RESP 17; TEMP 98.1; O2SAT 93
[2025-02-18] MEDS: NYSTATIN CREAM - 30GM TUBE TP SCH (20:00)
[2025-02-18] MEDS: ondansetron 4mg rapidly disintigrating tab PO PRN (20:25)
--- NOTE | 2025-02-18 20:29 | PROGRESS NOTE ---
Progress Note Dictate Providers to CC CC: TORI DONOHUE MD ~ Progress Note: Suspected small bowel obstruction CT with oral contrast ordered for AM Will continue to follow Full consult to follow. Antibiotic Ordered?: N/A Objective Vitals Vital Signs Date Time Temp Pulse Resp B/P (MAP) Pulse Ox O2 Delivery O2 Flow Rate FiO2 02/18/25 15:44 Room Air 0.0 02/18/25 12:15 98.6 65 18 118/60 (79) 97 Lab Results: 02/18/25 0050 02/18/25 0050 Coagulation Studies Laboratory Tests Test 02/18/25 04:55 Prothrombin Time 10.6 SECONDS (9.0-12.0) INR International Normalized Ratio 1.0 INR Coagulation Comments TORI DONOHUE MD Feb 18, 2025 20:28
[2025-02-18 22:00] VITALS: BP 115/59; PULSE 62; RESP 20; TEMP 98.9; O2SAT 98
[2025-02-18] MEDS: latanoprost 0.005% 2.5ml ophthalmic drops EACHEYE SCH (22:00)
[2025-02-18] MEDS: diatrozoate meglu/diatrozoate sod (37% iodine) 120ML oral solution PO ONE (22:01)
[2025-02-19 04:23] LABS: MEAN PLATELET VOLUME 7.7 FL (7.4-10.4); RED CELL DISTRIBUTION WIDTH 14.1 % (11.5-14.5)
[2025-02-19 04:43] LABS: CREATININE 0.60 MG/DL (0.40-0.90); TOTAL CARBON DIOXIDE 25.3 MMOL/L (24-32); eCRCL 71 ML/MIN; eGFR > 90 ML/MIN
[2025-02-19 06:00] VITALS: BP 106/64; PULSE 63; RESP 16; TEMP 98.8; O2SAT 99
[2025-02-19] MEDS ORDERED: pantoprazole 40mg Tablet.DR PO SCH (07:30)
[2025-02-19] MEDS ORDERED: non-formulary drug (Levothyroxine Sodium (Synthroid) 1 TAB) PO SCH (08:00)
[2025-02-19] MEDS: AZELASTINE 0.05% EACHEYE SCH (08:00)
[2025-02-19 10:00] VITALS: BP 133/64; PULSE 63; RESP 17; TEMP 97.9; O2SAT 94
--- NOTE | 2025-02-19 10:41 | PROGRESS NOTE- Residence ---
Progress Note - Resident Providers to CC Resident Creating Document: YUMIKO HAYDEN RES ~ Antibiotic Timeout Antibiotic Ordered?: No Subjective Patient was seen and examined on bedside, In morning she was very nauseated she can not tolerate oral meds and was having abdominal pain. Curently patient feels fine denies abdominal pain ,no nausea or vomitting and she had 3 episodes of bowel movement today. History she reports abdominal pain was diffusely more towards on the right lower quadrant which is radiating to left lower quadrant, her abdominal pain started on Sunday night which was pressure-like, she also reported she has a history of heart failure hypertension high cholesterol, diabetes mellitus type 2 She was taking her regular pain meds for abdominal pain which did not help. Apart from that she also mentions she had stent placement for heart and CABG . She also mentioned left index finger replacement, osteoarthritis of back, neck , shoulder and left wrist. 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 Lungs clear to auscultation bilaterally. Chest: Normal expansion. Cardiovascular: Regular Rate and rhythm, normal S1 and S2 without murmur, rub or gallop Abdomen: Soft and non tender in epigastrium, no organomegaly, no guarding and rigidity, bowel sounds present multiple surgical scars noted in abdomen Neuro: No focal weakness in the upper and lower limb muscles, power of the muscles 5/5 bilateral upper and lower extremities, normal reflexes bilaterally. Cranial nerves intact Extremities: No cyanosis,clubbing or edema Skin: Warm and Dry. Psych: Normal affect Coagulation Studies Laboratory Tests Test 02/18/25 04:55 Prothrombin Time 10.6 SECONDS (9.0-12.0) INR International Normalized Ratio 1.0 INR Coagulation Comments Advance Care Planning Advanced Care plannin - 30 Minutes Plan Plan This is 69 year old female [facility] complain of diffuse abdominal pain CT scan was suggestive of partial bowel obstruction. Partial Small bowel Obstruction possibly secondary to multiple history of surgeries On NG tube CT Abdomen Pelvis without Contrast shows: Moderately dilated fluid and gas- filled segments of predominantly small bowel throughout the abdomen and pelvis exhibiting some air-fluid levels and diffuse circumferential wall thickening suggestive of partial obstruction. A segment of bowel is noted within hernia defect within the right lateral abdominal wall. CT abdomen pelvis with oral contrast shows:The small bowel loops are dilated up to 3.5 cm with air-fluid levels, overall decreased from previous examination which May suggest improving/resolving small bowel obstruction. Consulted Dr Brower, who ordered CT abdomen pelvis with oral contrast as per Dr Brower, No small-bowel obstruction on CT scan Contrast easily reaches the colon Laboratory studies reassuring and Discontinue Nasogastric tube. Protonix 40 mg IV b.i.d. NG tube has been dced. Patient is now tolerating liquid diet , had 3 bowel movements today. Chronic Heart failure With Reduced Ejection Fraction not in Acute Excerabation Probnp 1151 Last Echo on 08/26/24: LVEF is about 45-50%,Estimated PA systolic pressure is 44 mmHg. Pacemaker wire in right heart. Continue home medication furseomide and enteresto. Patient has no symptoms, no shortness of breath, no edema, no crackles Normocytic anemia Hgb: 11.3 Hct: 33.3 Will continue to monitor CBC Hypothyroidism Continue levothyroxine 50 mcg Continue to monitor TSH Diabetes mellitus type 2 A1c 6.6 On low-dose supplemental insulin Hypertension Continue Enteresto Hyperlipidemia Continue atorvastatin 80 mg Code Status: Full DVT Prophylaxis: SCD GI Prophylaxis: Pantoprazole 40 mg IV BID Code status: Full code DVT prophylaxis: Heparin Diet: Clear liquid diet GI prophylaxis: pantoprazole 40 mg IV Disposition: Rincon has been dced, NG dced, patient had bowel movements, possible discharge tomorrow. Yumiko Hayden PGY 1 IM Date of Service: Feb 19, 2025 Billing Provider: KASSIDY JAMISON MD Common Visit Codes: [id number] INP/OBS CARE(HIGH) YUMIKO HAYDEN, YAZMIN Feb 19, 2025 10:41 KASSIDY JAMISON MD Feb 19, 2025 21:12
--- NOTE | 2025-02-19 10:54 | RADIOLOGY REPORT ---
Indication: sbo Technique: CT axial images of the abdomen and pelvis are obtained without contrast. Coronal and sagittal reformats were obtained. Radiation Dose Information: CTDI volume is 25.1 mGy. Dose-length product is 1279 mGy*cm Comparison: CT CT ABDOMEN PELVIS on DOS: 02/18/25, FINDINGS: There is limited interpretation of the abdomen and pelvis without administration of intravenous contrast. Borderline cardiomegaly. Lung bases demonstrate atelectasis. Tiny bilateral pleural effusions. Adrenal glands, spleen unremarkable. Pancreatic parenchymal thinning/atrophy. Liver unremarkable in shape. Gallbladder contracted/ removed. Kidneys demonstrate no hydronephrosis, nephrolithiasis. NG tube projecting towards distal stomach/ proximal jejunum. Gastrojejunostomy.m the small bowel loops are moderately distended of the 3.5 cm with air-fluid levels, overall decreased from previous examination. Mesenteric edema. Small amount of ascites fluid. There is contrast extending from the rectum to the terminal ileum. Appendix not well characterized. Abdominal aortic atherosclerotic disease. Aortic tortuosity. Bladder decompressed by Rincon catheter. Postsurgical changes of the anterior abdominal / pelvic wall. Soft tissue edema /anasarca. Osseous structures stable. Posterior fixation of the L4 and L5 vertebral bodies with interbody disc spacer. IMPRESSION: Limited evaluation without IV contrast. Contrast extends from the rectum to the terminal ileum. Please evaluate whether the contrast was given per rectum or through the NG tube. The small bowel loops are dilated up to 3.5 cm with air-fluid levels, overall decreased from previous examination which May suggest improving/resolving small bowel obstruction. Correlate clinically. Recommend surgical consultation for further continued management /evaluation. Mesenteric edema and small volume of ascites, likely related to the previously seen small bowel obstruction. Postsurgical changes stomach/ gastrojejunostomy. Soft tissue edema/ anasarca. Other findings as described
[2025-02-19] MEDS: metoclopramide 5 mg/ml inj IV PRN (12:21)
--- NOTE | 2025-02-19 13:05 | PROGRESS NOTE ---
Progress Note Dictate Providers to CC CC: TORI DONOHUE MD ~ Progress Note: No small-bowel obstruction on CT scan Contrast easily reaches the colon Laboratory studies reassuring Nasogastric tube discontinued Surgery to sign off Please re-consult if future surgical concerns Antibiotic Ordered?: N/A Objective Vitals Vital Signs Date Time Temp Pulse Resp B/P (MAP) Pulse Ox O2 Delivery O2 Flow Rate FiO2 02/19/25 08:00 Room Air 0.0 02/19/25 06:00 98.8 63 16 106/64 (78) 99 Lab Results: 02/19/25 0348 02/19/25 0348 Coagulation Studies Laboratory Tests Test 02/18/25 04:55 Prothrombin Time 10.6 SECONDS (9.0-12.0) INR International Normalized Ratio 1.0 INR Coagulation Comments TORI DONOHUE MD Feb 19, 2025 13:05
[2025-02-19] MEDS: ketorolac trometh 15mg/ml vial 15 MG/ML ML IV ONE ×2 (13:53→23:40)
[2025-02-19 18:00] VITALS: BP 147/61; PULSE 66; RESP 16; TEMP 98.6; O2SAT 98
[2025-02-19 20:00] VITALS: RESP 14; O2SAT 100
[2025-02-19] MEDS: heparin, porcine 5000 units/ml vial SQ SCH (20:53)
[2025-02-19] MEDS: sacubitril/valsartan 24mg-26mg tablet PO SCH (20:53)
[2025-02-19] MEDS: ondansetron/PF 4mg/2ml inj IV PRN (20:56)
[2025-02-19 22:00] VITALS: BP 137/68; PULSE 60; RESP 14; TEMP 97.9; O2SAT 100
[2025-02-20 05:59] LABS: MEAN PLATELET VOLUME 8.0 FL (7.4-10.4); RED CELL DISTRIBUTION WIDTH 14.0 % (11.5-14.5)
[2025-02-20 06:12] LABS: CREATININE 0.56 MG/DL (0.40-0.90); TOTAL CARBON DIOXIDE 28.8 MMOL/L (24-32); eCRCL 76 ML/MIN; eGFR > 90 ML/MIN
[2025-02-20 06:44] VITALS: BP 140/67; PULSE 69; RESP 16; TEMP 97.8; O2SAT 99
[2025-02-20] MEDS: levoTHYROXINE 25mcg tablet PO SCH (07:34)
[2025-02-20 07:45] VITALS: RESP 16
[2025-02-20 08:08] VITALS: RESP 16; O2SAT 99
[2025-02-20] MEDS: HYDROcodone/acetaminophen 10/325mg tab PO ONE (10:49)
[2025-02-20 11:16] VITALS: BP 100/70; PULSE 67; RESP 16; TEMP 97.3; O2SAT 98
[2025-02-20 11:48] VITALS: RESP 16
--- NOTE | 2025-02-20 22:57 | DISCHARGE SUMMARY-Residence ---
Discharge Summary Providers to CC Resident Creating Document: YUMIKO SPRINGER, YAZMIN ~ Discharge Summary Admission Diagnosis: SMALL BOWEL OBSTRUCTION Hospital Course DATE OF ADMISSION: DATE OF DISCHARGE: 02/20/25 Discharge Diagnosis\Comment: Partial Small bowel Obstruction possibly secondary to multiple history of surgeries Chronic Heart failure With Reduced Ejection Fraction not in Acute Excerabation Normocytic anemia Hypothyroidism Diabetes mellitus type 2 Hypertension Hyperlipidemia Operations\Procedures: none Consultants: surgeon was consulted Complications: none Condition on DC: Stable Continued Medications: Atorvastatin Calcium (Atorvastatin Calcium) 80 Mg Tablet 1 TAB PO DAILY Azelastine HCl (Azelastine HCl) 0.05 % Drops 1 DROP EACHEYE BID Calcitriol (Calcitriol) 0.25 Mcg Capsule 2 CAP PO DAILY Citalopram Hydrobromide (Citalopram HBr) 10 Mg Tablet 3 TAB PO DAILY for 30 Days, #30 TAB 0 Refills Cyanocobalamin (Vitamin B-12) (Vitamin B-12) 1,000 Mcg Tablet 1 TAB PO DAILY Ferrous Sulfate (Ferrous Sulfate) 325 Mg (65 Mg Iron) Tablet 325 MG PO WB for 30 Days, #30 TAB Furosemide (Lasix) 40 Mg Tablet 1 TAB PO DAILY for 30 Days, #30 TAB 0 Refills Gabapentin (Neurontin) 300 Mg Capsule 3 CAP PO BID@0800,2000 Hydrocodone Bit/Acetaminophen (Hydrocodone-Apap 10-325 Tablet) 10mg/325mg Tablet 1 TAB PO Q6H PRN for pain Insulin Glargine,Hum.rec.anlog* (Lantus*) 100 Unit/1 Ml Vial 30 UNITS SQ HS Latanoprost (Latanoprost) 0.005 % Drops 1 DROP EACHEYE HS Levothyroxine Sodium (Synthroid) 50 Mcg Tablet 1 TAB PO DAILY Linaclotide (Linzess) 72 Mcg Capsule 1 CAP PO QAM Linagliptin (Tradjenta) 5 Mg Tablet 1 TAB PO DAILY for 30 Days, #30 TAB 0 Refills Nystatin (Nystatin) 100,000 Unit/Gram Cream.gm. 1 APPLIC TOP BID Omeprazole (Omeprazole) 20 Mg Capsule.dr 1 CAP PO BID for 30 Days, #30 CAP 0 Refills Potassium Chloride* (K-Dur*) 20 Meq Tab.prt.sr 1 TAB PO BID Sacubitril/Valsartan (Entresto 24 mg-26 mg Tablet) 24 Mg-26 Mg Tablet 1 TAB PO Q12H for 30 Days, #60 TAB 0 Refills Zolpidem Tartrate (Zolpidem Tartrate) 5 Mg Tablet 1 TAB PO HSPRN PRN for sleep for 30 Days, #30 TAB 0 Refills Discharge Summary: Hospital Course This is a 69-year-old female with a history of CAD status post CABG , chronic heart failure with reduced ejection fraction, type 2 diabetes mellitus, hypothyr oidism, osteoporosis, and prior cecal volvulus with surgical intervention, who presented with sharp, constant abdominal pain radiating to the back, associated with abdominal distention. Initial CT abdomen and pelvis without contrast showed moderately dilated small bowel loops with air-fluid levels and wall thickening, suggestive of a partial small bowel obstruction, Surgeon was consulted who ordered A repeat CT with oral contrast demonstrated contrast reaching the colon with decreased bowel dilatation, indicating an improving or resolving SBO. The patient was managed conservatively with bowel rest, nasogastric decompression, and IV Protonix, no surgical intervention was recommended by surgeon. The nasogastric tube was discontinued after clinical improvement, and the patient subsequently tolerated a liquid diet and resumed bowel function withbowel movements prior to discharge. Her chronic heart failure remained stable (LVEF 4550%, BNP 1151) with no evidence of acute exacerbation, and she continued her home medications, including furosemide and Entresto, intially entersto was held due to soft bp, later it was continued. At discharge, the patient was tolerating diet, ambulating, hemodynamically stable, and without abdominal pain or distention and had bowel movements. Patient was able to move independently, no PT was required Patient was stable and ready for discharge was tolerate liquid she had lunch which she was tolerating. Laboratory Tests Test 02/19/25 08:27 02/19/25 12:29 02/19/25 16:34 02/19/25 21:11 Glucometer 102 mg/dl 101 mg/dl 193 mg/dl 180 mg/dl Test 02/20/25 04:43 02/20/25 07:13 02/20/25 12:00 02/20/25 17:08 White Blood Count 4.5 X10'3 Red Blood Count 3.20 X10'6 Hemoglobin 10.2 g/dl Hematocrit 30.4 % Mean Corpuscular Volume 94.7 FL Mean Corpuscular Hemoglobin 32.0 PG Mean Corpuscular Hemoglobin Concent 33.7 g/dL Red Cell Distribution Width 14.0 % Platelet Count 177 X10'3 Mean Platelet Volume 8.0 FL Neutrophils (%) (Auto) 72.0 % Lymphocytes (%) (Auto) 12.1 % Monocytes (%) (Auto) 10.9 % Eosinophils (%) (Auto) 4.3 % Basophils (%) (Auto) 0.7 % Neutrophils # (Auto) 3.2 X10'3 Lymphocytes # (Auto) 0.5 X10'3 Monocytes # (Auto) 0.5 X10'3 Eosinophils # (Auto) 0.2 X10'3 Basophils # (Auto) 0.0 X10'3 CBC Comment Sodium Level 137 MMOL/L Potassium Level 4.3 MMOL/L Chloride Level 105 MMOL/L Carbon Dioxide Level 28.8 MMOL/L Anion Gap 3 Blood Urea Nitrogen 11 MG/DL Creatinine 0.56 MG/DL Estimated GFR/1.73 m2 > 90 ML/MIN BUN/Creatinine Ratio 19.6 Glucose Level 146 MG/DL Calcium Level 8.8 MG/DL Total Bilirubin 0.4 MG/DL Aspartate Amino Transf (AST/SGOT) 18 U/L Alanine Aminotransferase (ALT/SGPT) 21 U/L Alkaline Phosphatase 57 IU/L Total Protein 5.0 G/DL Albumin 2.4 G/DL Globulin 2.6 G/DL Albumin/Globulin Ratio 0.9 Chemistry Comments Glucometer 159 mg/dl 176 mg/dl 151 mg/dl Imaging Abdomen Pelvis CT without Contrast Findings: Evaluation of solid organs is limited due to lack of intravenous contrast use. Lung Bases: No acute or significant lung base finding. Mild bibasilar atelectasis. Cardiomegaly status post median sternotomy. Cardiac pacing leads. Atherosclerotic vascular calcifications. No pleural or pericardial effusion. Liver: The liver is normal in size. No focal lesions. Gallbladder and Biliary Tree: Unremarkable Spleen: Unremarkable Pancreas: The pancreas is grossly normal in appearance. Adrenal Glands: Unremarkable Kidneys: Kidneys are grossly normal without calculi or hydronephrosis. Bladder: Grossly unremarkable for degree of distention. Bowel: The stomach is grossly normal in appearance with postsurgical changes. Anastomotic bowel sutures are present within the right abdomen. Moderately dilated fluid and gas-filled segments of predominantly small bowel throughout the abdomen and pelvis exhibiting some air-fluid levels and diffuse circumferential wall thickening suggestive of partial obstruction. A segment of bowel is noted within hernia defect within the right lateral abdominal wall. The appendix is not visualized; however, no secondary findings of acute appendicitis identified. Ascites: Moderate abdominopelvic ascites. Lymphadenopathy: No mesenteric, retroperitoneal or periportal lymphadenopathy. Abdominal Wall and Mesentery: Postsurgical changes status post ventral abdominal wall herniorrhaphy. Vasculature: The visualized abdominal aorta is normal in size and caliber. Atherosclerotic vascular calcifications. Evaluation of abdominal and pelvic vessels is limited due to lack of intravenous contrast. Pelvic Organs: Unremarkable Musculoskeletal: No aggressive focal bony lesions, acute fractures or dislocation. Hardware status post L4-L5 discectomy and posterior lumbar interbody fusion. IMPRESSION: 1. Moderately dilated fluid and gas-filled segments of predominantly small bowel throughout the abdomen and pelvis exhibiting some air-fluid levels and diffuse circumferential wall thickening suggestive of partial obstruction. A segment of bowel is noted within hernia defect within the right lateral abdominal wall. 2. Moderate abdominopelvic ascites. 2.Abdomen Pelvis CT with Oral Contrast FINDINGS: Borderline cardiomegaly. Lung bases demonstrate atelectasis. Tiny bilateral pleural effusions. Adrenal glands, spleen unremarkable. Pancreatic parenchymal thinning/atrophy. Liver unremarkable in shape. Gallbladder contracted/ removed. Kidneys demonstrate no hydronephrosis, nephrolithiasis. NG tube projecting towards distal stomach/ proximal jejunum. Gastrojejunostomy.m the small bowel loops are moderately distended of the 3.5 cm with air-fluid levels, overall decreased from previous examination. Mesenteric edema. Small amount of ascites fluid. There is contrast extending from the rectum to the terminal ileum. Appendix not well characterized. Abdominal aortic atherosclerotic disease. Aortic tortuosity. Bladder decompressed by Rincon catheter. Postsurgical changes of the anterior abdominal / pelvic wall. Soft tissue edema /anasarca. Osseous structures stable. Posterior fixation of the L4 and L5 vertebral bodies with interbody disc spacer. IMPRESSION: Limited evaluation without IV contrast. Contrast extends from the rectum to the terminal ileum. Please evaluate whether the contrast was given per rectum or through the NG tube. The small bowel loops are dilated up to 3.5 cm with air-fluid levels, overall decreased from previous examination which May suggest improving/resolving small bowel obstruction. Correlate clinically. Recommend surgical consultation for further continued management /evaluation. Mesenteric edema and small volume of ascites, likely related to the previously seen small bowel obstruction. Postsurgical changes stomach/ gastrojejunostomy. Soft tissue edema/ anasarca. Chest X-Ray FINDINGS: Lines and Tubes: AICD/ pacemaker noted. The enteric tube terminates in the stomach. Lungs: No focal consolidation. Pleura: No effusion. No pneumothorax. Cardiomediastinal contours: Cardiomegaly. Bones: No acute osseous abnormality. There is a right shoulder prosthesis. Status post median sternotomy. Discontinuity of some of the sternal wires. IMPRESSION: 1. Cardiomegaly. 2. No acute pulmonary disease. Discharge Instructions Follow up with PCP within 2 weeks Follow up with General Surgeon Dr Brower within 2 weeks. Take medications as prescribed Call 911 or go to nearest ER, if you experience chest pain, shortness of breath or abdominal pain *Problems/Diagnosis: (1) Small bowel obstruction Status: Resolved Total Time Spent on D/C: > 30 Minutes Date of Service: Feb 20, 2025 Billing Provider: SHANTEL SALEH MD, SANJAY, RES Feb 20, 2025 22:57
== END 2025-02-20 18:15 | disposition home or self-care (01) | DRG 389 ==
LOC: ER 00:41 → ED HOLD 04:01 → SUR 3N 12:11
PROVIDERS: ADMIT Internal Medicine Critical Care Medicine; ATTEND Internal Medicine
PROC: 0D9670Z Drainage of Stomach with Drainage Device, Via Natural or Artificial Opening (ICD-10-PCS; principal; 2025-02-18)
PROC: BW211ZZ Computerized Tomography (CT Scan) of Abdomen and Pelvis using Low Osmolar Contrast (ICD-10-PCS; 2025-02-18)
DX: K56.600 Partial intestinal obstruction, unspecified as to cause (principal); E87.1 Hypo-osmolality and hyponatremia; I50.22 Chronic systolic (congestive) heart failure; I25.10 Atherosclerotic heart disease of native coronary artery without angina pectoris; E11.42 Type 2 diabetes mellitus with diabetic polyneuropathy; Z96.611 Presence of right artificial shoulder joint; D64.9 Anemia, unspecified; I11.0 Hypertensive heart disease with heart failure; F32.A Depression, unspecified; F41.9 Anxiety disorder, unspecified; J45.909 Unspecified asthma, uncomplicated; R33.9 Retention of urine, unspecified; E03.9 Hypothyroidism, unspecified; Z88.1 Allergy status to other antibiotic agents; Z79.899 Other long term (current) drug therapy; Z98.84 Bariatric surgery status; Z95.1 Presence of aortocoronary bypass graft; Z90.49 Acquired absence of other specified parts of digestive tract; Z91.041 Radiographic dye allergy status; Z88.8 Allergy status to other drugs, medicaments and biological substances; Z91.018 Allergy to other foods
CPT/HCPCS: 36415; 71045; 74176; 80053; 81003; 82948; 83036; 83605; 83690; 83880; 84443; 85025; 85610; 87081; 96365; 96375; 99285; A4314; A4615; A6258; G0378; J1644; J1815; J1885; J2270; J2405; J2470; J2765; J3010; J3490; J7030; Q9963